=== PATIENT | male | born 1965 | race Caucasian/White ===

== ENCOUNTER 2019-04-19 14:24 | Emergency (ER) | payer OTHER, SELFPAY ==
[2019-04-19] VITALS (62 sets, daily range): BP systolic 113–159; BP diastolic 59–91; PULSE 85–96; RESP 13–28; TEMP 36.6–37.1; O2SAT 96–99
[2019-04-19] MEDS: Normal Saline Flush 10 ML SYR IVP (14:35)
--- NOTE | 2019-04-19 14:44 | DI.CT_ITS ---
EXAM: CT CHEST PE CTA CLINICAL HISTORY: chest pain, SOB, S1Q3T3 TECHNIQUE: Post IV contrast. The pulmonary arteries are well opacified with IV contrast. COMPARISON: No exams were available for comparison FINDINGS: No pulmonary emboli or aortic dissection is seen. The heart size is normal. The lungs appear clear. No adenopathy, infiltrate, pleural or pericardial effusion is seen. The liver shows severe fatty i nfiltration. Spleen is normal in size. The adrenals appear normal. IMPRESSION: Negative chest CT. No evidence of pulmonary emboli or other acute abnormality. Hepatic steatosis is noted.
[2019-04-19] MEDS: FAMOTIDINE 20 MG/50 ML BAG 200 MG IVPB (14:45)
--- NOTE | 2019-04-19 14:46 | W.ED.GENAD ---
Discharge Plan Disposition Patient Disposition: [facility] Condition: Critical Discharge Details Chief Complaint: Chest Pain Clinical Impression: Acute non-ST elevation myocardial infarction (NSTEMI) Primary Care Provider: Ilana Hamilton ED Provider: Nikos Longoria Home Meds and New Rx's Prescriptions: No Action potassium gluconate 595 mg (99 mg) tablet 99 mg PO DAILY Qty: 90 RF: 3 losartan 25 mg tablet 25 mg PO DAILY Qty: 30 RF: 2 atorvastatin 80 mg tablet 80 mg PO DAILY RF: 0 clopidogrel [Plavix] 75 mg tablet 75 mg PO DAILY RF: 0 famotidine 20 mg tablet 20 mg PO DAILY RF: 0 metoprolol succinate 25 mg capsule,sprinkle,ER 24hr 25 mg PO BID RF: 0 aspirin [Aspir-81] 81 MG tablet,delayed release (DR/EC) 81 mg PO DAILY RF: 0 Symbicort 80-4.5 mcg/actuation HFA aerosol inhaler 2 puff Inhalation BID Qty: 1 RF: 4 albuterol sulfate [Proventil HFA] 90 mcg/actuation HFA aerosol inhaler 2 puff Inhalation Q6H PRN Qty: 1 RF: 5 Discharge Data Discharge Date/Time-TO BE ENTERED AT DEPARTURE: 04/19/19 17:05 Medical Decision Making 1500 --53-year-old male with history of GERD, hypertension, here with intermittent chest pain since yesterday. ECG was reviewed and interpreted by me: Sinus rhythm 90 bpm, [address] elevation in lead III and aVF, S1Q3T3 present. This ECG was compared to prior ECG from 09/16/2015 and has changed since that time. Consider ACS. Plan to check troponin. Consider acute pulmonary embolism. Will CTA chest. 15:22 -- Troponin elevated. Patient reassess and notes 2/10 pain at this time. Will start nitro gtt. 15:25 -- Call to [facility] to request transfer. Awainting call back. 15:49 --repeat ECG was reviewed and interpreted by me: Dynamic changes noted with new J-point elevation in lead II, worsening ST elevation in lead III, <1mm elevation lead aVF, ST depressions noted lead I and aVL. We will give Plavix 600 mg, heparin bolus 5000 units and infusion, and additional aspirin 243mg (pt took 81mg this am). --I spoke with wood type finisher television technician and discussed ED presentation and course including my concern for intermittent pain, dynamic ECG changes and elevated troponin. He reviewed the ECGs and notes emergent cath not necessary but will accept the patient in transfer pending bed availability. -- Patient reassessed and pain resolved on nitro 10mcg/min. 16:25 --call from [facility] noting that now patient will be excepted to the [facility], Dr. kevin to accept the patient. HPI General Mode of arrival: ambulatory. Date/Time Provider Initiated Documentation: 04/19/19 14:28. Limitations to Documentation: no limitations. Information obtained by: patient. HPI Narrative: 53-year-old male with history of sleep apnea, GERD, hypertension, presents today with chief complaint of chest pain. Patient notes chest pain started yesterday and has been intermittent since onset. States he has episodes lasting approximately 15 to 20 minutes. Pain is described as severe and sharp. Pain is associated shortness of breath with the discomfort. Pain is localized to anterior chest. He has no associated lower extremity swelling or pain. No recent long distance travel. Related Data Home Medications Medication Instructions Recorded Confirmed aspirin [Aspir 81] 81 mg PO DAILY tab-cap 08/24/15 04/29/19 potassium gluconate 595 mg (99 mg) 99 mg PO DAILY #90 tab 05/02/18 04/29/19 tablet budesonide-formoterol HFA 80 2 puff INHALATION BID #1 inhaler 03/01/19 04/29/19 mcg-4.5 mcg/actuation aerosol inhaler losartan 25 mg tablet 25 mg PO DAILY #30 tab 03/19/19 04/29/19 albuterol sulfate 90 mcg/actuation 2 puff INHALATION Q6H PRN #1 04/22/19 04/29/19 aerosol inhaler inhaler atorvastatin 80 mg tablet 80 mg PO DAILY 04/29/19 04/29/19 clopidogrel 75 mg tablet 75 mg PO DAILY 04/29/19 04/29/19 famotidine 20 mg tablet 20 mg PO DAILY 04/29/19 04/29/19 metoprolol succinate 25 mg capsule 25 mg PO BID cap 04/29/19 04/29/19 sprinkle, ext. release 24 hr Previous Rx's Medication Instructions Recorded potassium gluconate 595 mg (99 mg) 99 mg PO DAILY #90 tab 11/21/18 tablet budesonide-formoterol HFA 80 2 puff INHALATION BID #1 inhaler 03/01/19 mcg-4.5 mcg/actuation aerosol inhaler losartan 25 mg tablet 25 mg PO DAILY #30 tab 03/19/19 albuterol sulfate 90 mcg/actuation 2 puff INHALATION Q6H PRN #1 04/22/19 aerosol inhaler inhaler Allergies Allergy/AdvReac Type Severity Reaction Status Date / Time No Known Allergies Allergy Unverified 04/29/19 09:58 General Stated Complaint: Chest Pain LUCIO: 2 Review of Systems All systems reviewed & are unremarkable except as noted in HPI and below Cardiovascular Cardiovascular: Reports chest pain and Denies edema PFSH Social History Smoking/Tobacco Use Status: Current every day Alcohol Intake: never Substance use type: does not use Do you feel safe at home: Yes Do you feel safe in your relationship?: Yes Exam Const General: cooperative and no acute distress HENMT Mouth: moist mucous membranes Eyes Conjunctivae: normal conjunctivae Sclera: normal sclerae Neck Neck: trachea midline and supple Resp Auscultation: clear to auscultation bilaterally, no rales, no rhonchi and no wheezes Cardio Jugular venous pressure: no JVD Rate: regular rate and not tachycardic Rhythm: regular rhythm GI Palpation: soft, not firm, no guarding, no masses, not rigid and nontender Skin General skin exam: no rashes or lesions noted Neuro General: alert, awake, oriented x3 and tone normal Extrem General: no calf tenderness and no edema Psych Appearance: grossly normal Mental Status: mental status grossly normal Course Vital Signs Vital signs: Vital Signs Temperature 36.6 C 04/19/19 14:28 Pulse 92 H 04/19/19 14:28 Respiratory Rate 18 04/19/19 14:28 Blood Pressure 149/85 H 04/19/19 14:28 Pulse Oximetry 96 04/19/19 14:28 Temperature 36.6 C 04/19/19 14:28 Temperature Source Temporal Artery Scan 04/19/19 14:28 Pulse 92 H 04/19/19 14:28 Respiratory Rate 18 04/19/19 14:28 Respiratory Effort Non-Labored 04/19/19 14:28 Blood Pressure 149/85 H 04/19/19 14:28 Blood Pressure Position Sitting 04/19/19 14:28 Pulse Oximetry 96 04/19/19 14:28 Oxygen Delivery Method Room Air 04/19/19 14:28 Oxygen Flow Rate 0 04/19/19 14:28 Pain Level 5 04/19/19 14:28 Critical Care Time Critical Care Time Critical Care Time: Yes Total Critical Care Time: 45 Attestation: I spent greater 45 minutes addressing this patient's immediate life threats
[2019-04-19 14:59] LABS: Abs Immature Grans 0.02 k/cumm (0.0-0.09); Absolute Basophil Count 0.02 k/cumm (0.0-0.2); Absolute Eosinophil Count 0.21 k/cumm (0.0-0.7); Absolute Lymphocyte Count 1.65 k/cumm (1.2-3.4); Absolute Monocyte Count 0.77 k/cumm (0.11-0.7); Absolute Neutrophil Count 7.41 k/cumm (1.2-6.7); Basophils % 0.2; Eosinophils % 2.1; HCT 46.9 % (40.0-50.0); HGB 16.8 g/dL (13.5-17.5); Immature Grans % 0.2; Lymphocytes % 16.4; Mean Corp. HGB Concentration 35.8 g/dL (32.0-36.0); Mean Corpuscular Hemoglobin 29.5 pg (27.0-33.0); Mean Corpuscular Volume 82.4 fL (80-95); Mean Platelet Volume 10.1 fL (8.0-11.0); Monocytes % 7.6; Neutrophils % 73.5; Platelet Count 254 x1000/uL (130-400); RBC 5.69 m/cumm (4.50-6.00); RBC Distribution Width 13.1 % (11.8-14.1); White Blood Cell Count 10.08 k/cumm (4.4-10.8)
[2019-04-19 15:10] LABS: ALT 55 U/L (16-63); AST 26 U/L (15-37); Alkaline Phosphatase 99 U/L (46-116); Anion Gap 9.1 mmol/L (3-11); BUN 15 mg/dL (7-18); Bilirubin, Total 0.4 mg/dL (0.2-1.0); CO2 29.9 mmol/L (21.0-32.0); CREATININE 1.13 mg/dL (0.70-1.30); Calcium 9.2 mg/dL (8.5-10.1); Chloride 99 mmol/L (98-107); Glucose 128 mg/dL (70-100); Magnesium 1.7 mg/dL (1.8-2.4); Potassium 3.5 mmol/L (3.5-5.1); Sodium 138 mmol/L (136-145); Total Protein 7.6 g/dL (6.4-8.2)
[2019-04-19 15:16] LABS: Troponin I 0.52 ng/mL (0.00-0.06)
[2019-04-19] MEDS: Omnipaque 350 MG/ML 100 ML BTL IJ (15:37)
[2019-04-19] MEDS: Clopidogrel 300 MG TAB 600 MG PO (16:03)
[2019-04-19] MEDS: Normal Saline 250 ML 500 ML IV (16:10)
[2019-04-19 16:27] LABS: PTT Activated 29.6 sec (21.0-31.4)
== END 2019-04-19 17:05 | disposition short-term general hospital (02) ==
PROVIDERS: Emergency Provider Student in an Organized Health Care Education/Training Program; PCP Internal Medicine
DX: I21.4 Non-ST elevation (NSTEMI) myocardial infarction (principal); I10 Essential (primary) hypertension
CPT/HCPCS: 36415; 71275; 80053; 93005; 96365; 99285; 83735; 84484; 85025; 85730; 93010; J3490

== ENCOUNTER 2019-04-29 07:00 | Outpatient (CLI) | payer OTHER, SELFPAY ==
[2019-04-29 12:58] LABS: ALT 49 U/L (16-63); AST 19 U/L (15-37); Alkaline Phosphatase 106 U/L (46-116); Anion Gap 8.4 mmol/L (3-11); BUN 19 mg/dL (7-18); Bilirubin, Total 0.7 mg/dL (0.2-1.0); CO2 28.6 mmol/L (21.0-32.0); CREATININE 1.16 mg/dL (0.70-1.30); Calcium 9.3 mg/dL (8.5-10.1); Chloride 102 mmol/L (98-107); Glucose 99 mg/dL (70-100); Sodium 139 mmol/L (136-145); Total Protein 7.2 g/dL (6.4-8.2)
== END 2019-04-29 07:20 ==
PROVIDERS: PCP Internal Medicine; Visit Provider Internal Medicine
DX: I10 Essential (primary) hypertension (principal); I21.4 Non-ST elevation (NSTEMI) myocardial infarction
CPT/HCPCS: 36415; 80053

== ENCOUNTER 2019-05-08 11:42 | Outpatient (RCR) | payer OTHER, SELFPAY | END 2019-05-11 23:59 | disposition home or self-care (01) | LOC: CR 11:42 | PROVIDERS: PCP Internal Medicine; Visit Provider Family Medicine | DX: I25.2 Old myocardial infarction (principal); Z51.89 Encounter for other specified aftercare | CPT/HCPCS: S9472 ==

== ENCOUNTER 2019-05-20 14:07 | Outpatient (RCR) | payer OTHER, SELFPAY | END 2019-06-11 23:59 | disposition home or self-care (01) | LOC: CR 14:07 | PROVIDERS: PCP Internal Medicine; Visit Provider Family Medicine | DX: I25.2 Old myocardial infarction (principal); Z51.89 Encounter for other specified aftercare | CPT/HCPCS: S9472 ==

== ENCOUNTER 2019-06-24 08:55 | Outpatient (CLI) | payer BC, SELFPAY | END 2019-06-24 09:15 | PROVIDERS: PCP Internal Medicine; Visit Provider Internal Medicine Cardiovascular Disease | DX: I25.10 Atherosclerotic heart disease of native coronary artery without angina pectoris (principal); I25.2 Old myocardial infarction; I25.5 Ischemic cardiomyopathy; I10 Essential (primary) hypertension; E78.5 Hyperlipidemia, unspecified | CPT/HCPCS: 93005; 93010 ==

== ENCOUNTER 2019-07-12 09:00 | Outpatient (RCR) | payer BC, SELFPAY | END 2019-07-12 23:59 | disposition home or self-care (01) | LOC: CR 09:00 | PROVIDERS: PCP Internal Medicine; Visit Provider Family Medicine | DX: Z51.89 Encounter for other specified aftercare (principal) | CPT/HCPCS: S9472 ==

== ENCOUNTER 2019-07-29 14:14 | Outpatient (CLI) | payer BC, SELFPAY ==
[2019-07-29 15:38] LABS: Bilirubin Negative (Negative); Blood Negative (Negative); Clarity Clear (Clear); Glucose 250 mg/dL (Negative); Ketones Negative (Negative); Leukocyte Esterase Negative (Negative); Nitrite Negative (Negative); Specific Gravity 1.025 (1.005-1.025)
== END 2019-07-29 14:34 ==
PROVIDERS: Family Medicine; PCP Internal Medicine; Visit Provider Internal Medicine
DX: R39.15 Urgency of urination (principal)
CPT/HCPCS: 81003; 87086

== ENCOUNTER 2019-08-08 08:52 | Emergency (ER) | payer BC, SELFPAY ==
[2019-08-08] VITALS (31 sets, daily range): BP systolic 118–157; BP diastolic 51–66; PULSE 58–80; RESP 1–82; TEMP 36.6–36.7; O2SAT 95–99
--- NOTE | 2019-08-08 08:57 | ED.GENADUL_ITS ---
Discharge Plan Disposition Patient Disposition: HOME Condition: Stable Discharge Details Chief Complaint: SOB Clinical Impression: Myalgia, History of statin therapy, Chronic shortness of breath, History of asthma Primary Care Provider: Ilana Zuniga ED Provider: Awa Bob Home Meds and New Rx's Prescriptions: New ezetimibe [Zetia] 10 mg tablet 10 mg PO DAILY 30 Days Qty: 30 RF: 0 Continued potassium gluconate 595 mg (99 mg) tablet 99 mg PO DAILY Qty: 90 RF: 3 budesonide-formoterol [Symbicort] 80-4.5 mcg/actuation HFA aerosol inhaler 2 puff Inhalation BID Qty: 1 RF: 4 pantoprazole 40 mg tablet,delayed release (DR/EC) 40 mg PO DAILY RF: 0 CPAP machine miscellaneous RF: 0 clopidogrel [Plavix] 75 mg tablet 75 mg PO DAILY Qty: 90 RF: 6 metoprolol succinate 25 mg tablet extended release 24 hr 25 mg PO DAILY Qty: 90 RF: 6 aspirin [Aspir-81] 81 MG tablet,delayed release (DR/EC) 81 mg PO DAILY RF: 0 albuterol sulfate [Proventil HFA] 90 mcg/actuation HFA aerosol inhaler 2 puff Inhalation Q6H PRN Qty: 1 RF: 5 losartan 25 mg tablet 25 mg PO DAILY Qty: 90 RF: 3 hydrochlorothiazide 25 mg tablet 25 mg PO DAILY Qty: 90 RF: 6 nitroglycerin 0.4 mg tablet, sublingual 0.4 mg SL Q5M PRNRF: 0 cholecalciferol (vitamin D3) 4,000 unit capsule 4,000 unit PO DAILY Qty: 90 RF: 3 cholecalciferol (vitamin D3) 125 mcg (5,000 unit) tablet 5,000 unit PO DAILY Qty: 90 RF: 3 Discontinued atorvastatin 80 mg tablet 80 mg PO DAILY Qty: 90 RF: 6 Discharge Instructions Instructions: Dyspnea (ED), Musculoskeletal Pain (ED) Additional Instructions: Stop taking your Lipitor today. Start taking the new prescription Zetia for your high cholesterol today. Take all of your other regular medications as directed. You will receive a call from care management regarding a follow-up appointment with cardiology within the next 1 to 2 weeks for reevaluation, echocardiogram, and for possible outpatient stress test. You will receive a call from respiratory therapy regarding follow-up for a pulmonary function test. Follow-up with your primary care doctor within the next week for reevaluation of your muscle pain and shortness of breath. Return to the emergency department if you develop any worsening or new concerning symptoms. Discharge Data Discharge Date/Time-TO BE ENTERED AT DEPARTURE: 08/08/19 13:07 Discharge Physician: Awa Bob Medical Decision Making 09 -- 54-year-old male with a history of obesity, asthma, hypertension, GERD, hyperlipidemia, NSTEMI w/ 3 coronary stents placed in Apr 2019 who presents with dyspnea on exertion and tightness in legs and shoulder for a couple weeks. EKG on arrival notes a rate of 71, sinus, no acute ST ischemic changes. He has evidence of old inferior infarct in lead III and aVF with T wave inversion but this is unchanged compared to EKG last month. He denies fever, cough, chest pain, dizziness, vomiting, extremity weakness, numbness or tingling. He denies any known injury. He denies recent travel. Patient is taking Lipitor since April status post his NSTEMI. Patient has no focal deficits and is neurovascular intact. He has normal respiratory rate and oxygen saturation. Suspect most likely his extremity pain is a myopathy due to the Lipitor. Appears less likely c/w intermittent claudication or ACS. He has diminished breath sounds throughout, so COPD or asthma also a consideration. History and presentation not consistent with dissection, PE or pneumonia. We will check screening labs, chest x-ray, give a DuoNeb and check a CK. Will reach out to patient's PCP to discuss. 1250 --labs reviewed and unremarkable. Magnesium 1.4, will replete. Troponin and BNP negative. CK normal. Chest x-ray negative for acute disease. Patient was given a DuoNeb and had minimal improvement. He states his he came here mainly for evaluation as his primary care doctor is out of town. Discussed with Pina Pope from his PCP office that I suspect his myalgia due to statin induced myopathy and that I will be stopping his Lipitor to start Zetia. Recommend that they follow-up with him next week for reevaluation. Also discussed with respiratory therapy and an outpatient PFT study was ordered. He states he has an appointment in September with Dr. Sebastian with plans for echocardiogram. An appointment was made with cardiology for March 9 for reevaluation. He was advised to obtain an echocardiogram earlier if possible and also consideration for an outpatient stress test. I discussed that his symptoms likely could be due to his asthma or COPD and may require further investigation. He is requesting to go home. He was advised to return here with any concerns. Medical Records Medical records reviewed: Yes I reviewed the patient's medical records. Imaging Data Radiologic Study: Radiologist's impression: <XR CHEST 2V PA LATERAL> CLINICAL HISTORY: <dyspnea on exertion, r/o acute disease> TECHNIQUE: PA and lateral COMPARISON: CHEST 2 VIEWS PA,LAT from 08/24/2015 CT CHEST PE CTA from 04/19/2019 FINDINGS: The heart size is at the upper limits of normal. The lungs are reasonably well inflated. No focal infiltrate, effusion or pulmonary edema seen. There are underlying fibrotic changes. IMPRESSION: Mild fibrotic changes. No acute abnormality. Lab Data Lab results reviewed: Yes I reviewed the patient's lab results. Labs: Laboratory Tests Range/Units 08/08/19 08/08/19 08/08/19 09:05 09:05 09:05 WBC (4.4-10.8) k/cumm 7.87 RBC (4.50-6.00) m/cumm 5.22 Hgb (13.5-17.5) g/dL 15.6 Hct (40.0-50.0) % 43.2 MCV (80-95) fL 82.8 MCH (27.0-33.0) pg 29.9 MCHC (32.0-36.0) g/dL 36.1 H RDW (11.8-14.1) % 12.9 Plt Count (130-400) x1000/uL 214 MPV (8.0-11.0) fL 10.0 Immature Gran % % 0.1 Neutrophils % 75.8 Lymphocytes % 14.9 Monocytes % 6.5 Eosinophils % 2.4 Basophils % 0.3 Absolute Neutrophils (1.2-6.7) k/cumm 5.97 Absolute Lymphocytes (1.2-3.4) k/cumm 1.17 L Absolute Monocytes (0.11-0.7) k/cumm 0.51 Absolute Eosinophils (0.0-0.7) k/cumm 0.19 Absolute Basophils (0.0-0.2) k/cumm 0.02 Sodium (136-145) mmol/L 136 Potassium (3.5-5.1) mmol/L 3.3 L Chloride (98-107) mmol/L 99 Carbon Dioxide (21.0-32.0) mmol/L 27.1 Anion Gap (3-11) mmol/L 9.9 BUN (7-18) mg/dL 19 H Creatinine (0.70-1.30) mg/dL 1.19 Estimated GFR/1.73 m2 (mL/min/1.73m2) >= 60.00 Glucose (74-106) mg/dL 285 H Calcium (8.5-10.1) mg/dL 8.6 Magnesium (1.8-2.4) mg/dL 1.4 L Total Bilirubin (0.2-1.0) mg/dL 0.7 AST (15-37) U/L 34 ALT (16-63) U/L 56 Alkaline Phosphatase (46-116) U/L 118 H Creatine Kinase (39-308) U/L 234 Troponin I (<0.06) ng/Ml < 0.05 NT-Pro-B Natriuret Pep (<300) pg/mL 23 Total Protein (6.4-8.2) g/dL 7.1 Albumin (3.4-5.0) g/dL 3.8 Lipase (73-393) U/L 124 ECG Data Attestation: I personally reviewed and interpreted this ECG (s) as follows: Interpretation: Rate of 71, sinus, T wave inversion in lead III which is seen in previous EKG. No acute ST elevation or depression. LA 210. QTc 393. QRS 93. HPI General Mode of arrival: ambulatory . Date/Time Provider Initiated Documentation: 08/08/19 08:53 . Limitations to Documentation: no limitations . Information obtained by: patient . History of Present Illness 54 year old M presents to the emergency department with the chief complaint of b/l leg and shoulder pain, shortness of breath, worse w/ exertion/movement, Quality is described as aching and constant, and is localized to the left, right, upper extremity and lower extremity. Patient reports radiation to (radiates from both shoulders down arms and both legs). Patient started experiencing this month(s) (1) and it has been constant. Rest improves symptom(s), Movement worsens symptoms . Patient notes shortness of breath; denies chest pain, cough, diaphoresis, fever/chills, headaches, loss of appetite, malaise, nausea/vomiting, rash, seizure, syncope and weakness. Patient did receive the following treatments prior to arrival, none Related Data Home Medications Medication Instructions Recorded Confirmed aspirin [Aspir-81] 81 mg PO DAILY tab-cap 08/23/16 08/08/19 potassium gluconate 595 mg (99 mg) 99 mg PO DAILY #90 tab 05/02/18 08/08/19 tablet albuterol sulfate 90 mcg/actuation 2 puff INHALATION Q6H PRN #1 04/22/19 08/08/19 aerosol inhaler inhaler hydrochlorothiazide 25 mg tablet 25 mg PO DAILY #90 tab 05/20/19 08/08/19 losartan 25 mg tablet 25 mg PO DAILY #90 tab 05/20/19 08/08/19 nitroglycerin 0.4 mg sublingual 0.4 mg SL Q5M PRN 06/19/19 08/08/19 tablet CPAP machine MISCELLANEOUS 06/24/19 06/24/19 clopidogrel 75 mg tablet 75 mg PO DAILY #90 tab 06/24/19 08/08/19 metoprolol succinate 25 mg 25 mg PO DAILY #90 tab 06/24/19 08/08/19 tablet,extended release 24 hr pantoprazole 40 mg tablet,delayed 40 mg PO DAILY 06/24/19 08/08/19 release budesonide-formoterol HFA 80 2 puff INHALATION BID #1 inhaler 07/08/19 08/08/19 mcg-4.5 mcg/actuation aerosol inhaler cholecalciferol (vitamin D3) 125 5,000 unit PO DAILY #90 tab 07/10/19 08/08/19 mcg (5,000 unit) tablet cholecalciferol (vitamin D3) 4,000 4,000 unit PO DAILY #90 cap 07/10/19 08/08/19 unit capsule ezetimibe [Zetia] 10 mg PO DAILY 30 Days #30 tab 08/08/19 Previous Rx's Medication Instructions Recorded potassium gluconate 595 mg (99 mg) 99 mg PO DAILY #90 tab 05/02/18 tablet albuterol sulfate 90 mcg/actuation 2 puff INHALATION Q6H PRN #1 04/22/19 aerosol inhaler inhaler hydrochlorothiazide 25 mg tablet 25 mg PO DAILY #90 tab 05/20/19 losartan 25 mg tablet 25 mg PO DAILY #90 tab 05/20/19 clopidogrel 75 mg tablet 75 mg PO DAILY #90 tab 06/24/19 metoprolol succinate 25 mg 25 mg PO DAILY #90 tab 06/24/19 tablet,extended release 24 hr budesonide-formoterol HFA 80 2 puff INHALATION BID #1 inhaler 07/08/19 mcg-4.5 mcg/actuation aerosol inhaler cholecalciferol (vitamin D3) 125 5,000 unit PO DAILY #90 tab 07/10/19 mcg (5,000 unit) tablet cholecalciferol (vitamin D3) 4,000 4,000 unit PO DAILY #90 cap 07/10/19 unit capsule ezetimibe [Zetia] 10 mg PO DAILY 30 Days #30 tab 08/08/19 Allergies Allergy/AdvReac Type Severity Reaction Status Date / Time No Known Allergies Allergy Unverified 08/08/19 09:02 General LUCIO: 2 Review of Systems All systems reviewed & are unremarkable except as noted in HPI and below Constitutional Constitutional: Reports as per HPI, Denies chills and Denies fever(s) Eyes Eyes: Denies blurry vision ENT Ears, Nose, Mouth, and Throat: Denies dizziness, Denies sore throat and Denies throat swelling Cardiovascular Cardiovascular: Denies chest pain and Reports dyspnea Respiratory Respiratory: Denies cough and Reports dyspnea Gastrointestinal Gastrointestinal: Denies abdominal pain, Denies diarrhea and Denies vomiting Genitourinary Genitourinary: Denies hematuria and Denies dysuria Musculoskeletal Musculoskeletal: Denies back pain and Denies numbness Integumentary/Breasts Skin/Breast: Denies lesions and Denies rash Neurologic Neurologic: Denies dizziness, Denies focal weakness, Denies numbness and Reports other (b/l lower leg and shoulder pain ) Allergic/Immunologic Allergic/Immunologic: Denies throat swelling [facility] Medical History Asthma (Chronic) Diabetes (Chronic) Essential hypertension (Acute) Blood pressure uncontrolled today no change in medication. Gastroesophageal reflux disease without esophagitis (Acute 07/11/17) Continue taking omeprazole. Hyperlipidemia (Acute 05/14/07) Non-STEMI (non-ST elevated myocardial infarction) (Acute ~04/19/19) Obesity (BMI 30-39.9) (Acute 07/11/17) Counseled him on changing his eating habits so he would lose weight. Sleep apnea with use of continuous positive airway pressure (CPAP) (Acute 10/19/15) He uses his CPAP regularly no change here. Smoker (Acute 07/11/17) Surgical History H/O heart artery stent (Chronic ~04/19/19) MARLA to distal RCA and proximal LAD Family History Mother , age 65 Diabetes Heart disease CHF Father , age 69 Cancer Lung cancer Sister No problems noted. Sister No problems noted. Sister No problems noted. Brother No problems noted. Brother No problems noted. Son No problems noted. Daughter No problems noted. Social History Smoking/Tobacco Use Status: Former Tobacco Use Quit Date: 04/19/19 Tobacco: How many years used: 32 Alcohol Intake: current Alcohol Intake frequency: holidays/special occasions only Alcohol type: wine and hard liquor Drug use: Never Substance use type: does not use Caregiver/Support person: No Household members: children Housing: house Communication Needs: None Do you need help understanding health information?: Often Pets and animals: Yes Pets and animals: cat(s), dog(s) and horse(s) Current gender identity: female What is your relationship status?: refused to answer How often do you talk on the phone with friends or family?: decline to answer How often do you get together with friends or relatives?: decline to answer How often do you attend presybeterian or catholic services?: decline to answer Do you belong to any clubs or organized social groups?: decline to answer Panel score (0-1 are the most socially isolated patients): 0 What type of physical activity do you participate in: none Caryn/Evangelical: None Special caryn needs: No Seatbelt use: always Helmet use: No Drive intox or ride w/intox package delivery driver: No Do you feel safe at home: Yes Do you feel safe in your relationship?: Yes Exam Const General: cooperative and no acute distress Nutritional Appearance: obese Orientation: alert, awake and oriented x3 HENMT Head: normal to inspection Face and sinus: normal facial exam Eyes General: appearance normal, both eyes and all related structures EOM: EOM intact bilaterally Neck Neck: normal visual inspection and No submandibular swelling Lymphatic: no lymphadenopathy noted Chest Chest: normal inspection of the chest and no tenderness Resp Effort & Inspection: normal respiratory effort and able to speak in complete sentences Auscultation: diminished lung sounds bilaterally throughout Cardio Rate: regular rate Rhythm: regular rhythm GI Inspection: normal to inspection Palpation: soft, not firm, not rigid and nontender Auscultation: normal bowel sounds Back/Spine/Pelvis Pelvis: no pain with anterior-posterior compression Skin General skin exam: no rashes or lesions noted Other: Skin color of extremities normal without erythema, ecchymosis, cyanosis or texture changes. Neuro General: alert, awake and oriented x3 Cognition: normal cognition Speech: speech normal Motor: muscle tone normal throughout and strength 5/5 throughout Sensory Exam: no sensory deficits noted Extrem General: normal to inspection, full ROM, normal capillary refill, no calf tenderness bilaterally and no edema Other: Bilateral radial, ulnar, PT and DP pulses. Psych Appearance: grossly normal Mental Status: mental status grossly normal Speech and Movement: speech and movement normal Affect: normal affect
[2019-08-08 09:45] LABS: Abs Immature Grans 0.01 k/cumm (0.0-0.09); Absolute Basophil Count 0.02 k/cumm (0.0-0.2); Absolute Eosinophil Count 0.19 k/cumm (0.0-0.7); Absolute Lymphocyte Count 1.17 k/cumm (1.2-3.4); Absolute Monocyte Count 0.51 k/cumm (0.11-0.7); Absolute Neutrophil Count 5.97 k/cumm (1.2-6.7); Basophils % 0.3; Eosinophils % 2.4; HCT 43.2 % (40.0-50.0); HGB 15.6 g/dL (13.5-17.5); Immature Grans % 0.1 %; Lymphocytes % 14.9; Mean Corp. HGB Concentration 36.1 g/dL (32.0-36.0); Mean Corpuscular Hemoglobin 29.9 pg (27.0-33.0); Mean Corpuscular Volume 82.8 fL (80-95); Monocytes % 6.5; Neutrophils % 75.8; Platelet Count 214 x1000/uL (130-400); RBC 5.22 m/cumm (4.50-6.00); RBC Distribution Width 12.9 % (11.8-14.1); White Blood Cell Count 7.87 k/cumm (4.4-10.8)
[2019-08-08] MEDS: Normal Saline 500 ML IV (10:01)
[2019-08-08 10:05] LABS: Lipase 124 U/L (73-393)
--- NOTE | 2019-08-08 10:07 | DI.RAD_ITS ---
EXAM: <XR CHEST 2V PA LATERAL> CLINICAL HISTORY: <dyspnea on exertion, r/o acute disease> TECHNIQUE: PA and lateral COMPARISON: CHEST 2 VIEWS PA,LAT from 08/24/2015 CT CHEST PE CTA from 04/19/2019 FINDINGS: The heart size is at the upper limits of normal. The lungs are reasonably well inflated. No focal infiltrate, effusion or pulmonary edema seen. There are underlying fibrotic changes. IMPRESSION: Mild fibrotic changes. No acute abnormality.
[2019-08-08 10:21] LABS: ALT 56 U/L (16-63); AST 34 U/L (15-37); Albumin 3.8 g/dL (3.4-5.0); Alkaline Phosphatase 118 U/L (46-116); Anion Gap 9.9 mmol/L (3-11); BUN 19 mg/dL (7-18); Bilirubin, Total 0.7 mg/dL (0.2-1.0); CO2 27.1 mmol/L (21.0-32.0); CREATININE 1.19 mg/dL (0.70-1.30); Calcium 8.6 mg/dL (8.5-10.1); Chloride 99 mmol/L (98-107); Creatine Kinase 234 U/L (39-308); Glucose 285 mg/dL (74-106); Magnesium 1.4 mg/dL (1.8-2.4); NT-proBNP 23 pg/mL (<300); Potassium 3.3 mmol/L (3.5-5.1); Sodium 136 mmol/L (136-145); Total Protein 7.1 g/dL (6.4-8.2)
[2019-08-08 10:22] LABS: Troponin I < 0.05 ng/Ml (<0.06)
[2019-08-08] MEDS: Ketorolac 30 MG/ML VIAL IVP (11:15)
[2019-08-08] MEDS: MAGNESIUM SULFATE 1 GM/100 ML BAG IVPB (11:15)
[2019-08-08] MEDS: Albuterol/Ipratropium 3 ML UPD VIAL UPD (11:50)
--- NOTE | 2019-08-08 13:03 | NUR.NOTE ---
Nursing Note: Appt made for pt on August 18 @ 11:40am in Cardiology with Dr. Sebastian. [address].
== END 2019-08-08 13:07 | disposition home or self-care (01) ==
PROVIDERS: Emergency Provider Physician Assistant; PCP Internal Medicine
DX: R06.09 Other forms of dyspnea (principal); E78.5 Hyperlipidemia, unspecified; E83.42 Hypomagnesemia; J45.909 Unspecified asthma, uncomplicated; M79.10 Myalgia, unspecified site; T46.6X5A Adverse effect of antihyperlipidemic and antiarteriosclerotic drugs, initial encounter; I10 Essential (primary) hypertension; E11.9 Type 2 diabetes mellitus without complications
CPT/HCPCS: 36415; 80053; 82550; 83690; 93005; 94640; 96361; 96365; 96375; 99285; 71046; 83735; 83880; 84484; 85025; 93010; J1885; J3475; J7620

== ENCOUNTER 2019-08-09 13:40 | Outpatient (RCR) | payer BC, SELFPAY | END 2019-08-10 23:59 | disposition home or self-care (01) | LOC: CR 13:40 | PROVIDERS: PCP Internal Medicine; Visit Provider Family Medicine | DX: Z51.89 Encounter for other specified aftercare (principal); I25.2 Old myocardial infarction | CPT/HCPCS: S9472 ==

== ENCOUNTER 2019-08-15 01:18 | Outpatient (CLI) | payer BC, SELFPAY ==
--- NOTE | 2019-08-15 09:00 | ETT_ITS ---
APPROVED REPORT Exam: Exercise Treadmill Patient Location: Out-Patient Room/Bed: Stress Nurse: Sheron Webb RN BMI: 38.57 Baseline Rhythm: Sinus Rhythm Indications: Patient reports SOB with activity with occasional dizziness over the last month. Medical History Medical History: Chronic SOB, NSTEMI, Ischemic Cardiomyopathy, Obesity, Sleep Apnea with CPAP use Cardiac Medications: Aspirin, Potassium Gluconate, Hydrochlorothiazide, Losartan, Nitroglycerin SL, C lopidogrel, Metoprolol Succinate, Atorvastatin. Allergies: No known drug allergies Cardiac Risk Factors: FHX of CAD, HTN, Hyperlipidemia, Asthma Previous Cardiac Procedures: Stents X3 per patient Pretest Chest Pain Characteristics: No chest pain Exercise History: Physically active Physical Disabilities: None Lung Sounds: Clear to auscultation Heart Sounds: Regular Stress Test Details Test: Exercise stress testing was performed using a [place] protocol. Rest Stress HR Resting HR Supine: 60 bpm Max Heart Rate (APMHR): 168 bpm Resting HR Standin bpm Target HR (85% APMHR): 142 bpm Max HR Achieved: 154 bpm % of APMHR: 91 HR response to stress: Normal HR response to stress BP Resting BP Supine: 150/90 mmHg Resting BP Standin/80 mmHg Max BP: 196/92 mmHg BP response to stress: Normal blood pressure response to stress. ECG Resting ECG: Sinus Rhythm Stress ECG: Sinus Tachycardia ST Change: Normal Arrhythmia: None Recovery ECG: Sinus Rhythm Recovery ST Change: Normal Recovery Arrhythmia: None Clinical Reason for Termination: Dyspnea Stress Symptoms: Dyspnea Exercise duration: 6 min0 sec Highest Stage Reached: Stage 2: 2.5 mph at 12% grade. Exercise capacity: 7.05 METs Functional Capacity: Moderately diminished capacity Stress ECG Conclusion 1. The patient exercised for 6 minutes (7 METS). Exercise was stopped due to dyspnea. Rate-pressure product was 29,000. 2. The patient experienced no symptoms suggestive of ischemia. 3. There was no evidence of ischemia on the ECG at this level of stress. 4. The Calles Score ( 5) estimates an annual cardiovascular mortality of 1% and a five year survival of 94%. Using the Calles Score there is a low probability of any angiographic coronary disease. Protocol Used: [place] Protocol Stress Test Summary STAGE Time (mins) Speed (mph) Grade (%) HR BP SYMPTOMS METS Supine 60 150/90 Standing 88 150/80 1 3 1.7 10 125 180/90 4.6 2 6 2.5 12 152 190/95 7 3 9 3.4 14 10.2 4 12 4.2 16 12.9 5 15 5.0 18 17.2 1 min recovery 136 196/92 3 min recovery 97 190/90 6 min recovery 88 150/92 9 min recovery 12 min recovery
== END 2019-08-15 01:38 ==
PROVIDERS: PCP Internal Medicine; Visit Provider Internal Medicine Cardiovascular Disease
DX: R06.02 Shortness of breath (principal); R06.09 Other forms of dyspnea; R42 Dizziness and giddiness; I10 Essential (primary) hypertension; I25.2 Old myocardial infarction; I25.5 Ischemic cardiomyopathy; E78.5 Hyperlipidemia, unspecified; Z82.49 Family history of ischemic heart disease and other diseases of the circulatory system
CPT/HCPCS: 93017

== ENCOUNTER 2019-08-19 13:00 | Outpatient (RCR) | payer BC, SELFPAY | END 2019-09-10 23:59 | disposition home or self-care (01) | LOC: CR 13:00 | PROVIDERS: PCP Internal Medicine; Visit Provider Family Medicine | DX: I25.2 Old myocardial infarction (principal); Z51.89 Encounter for other specified aftercare | CPT/HCPCS: S9472 ==

== ENCOUNTER 2019-08-22 01:26 | Outpatient (CLI) | payer BC, SELFPAY ==
--- NOTE | 2019-08-22 08:30 | DI.US_ITS ---
APPROVED REPORT EXAM: Comprehensive 2D, Doppler, and color-flow Echocardiogram Patient Location: Out-Patient Supervisor Heading: Shirley Spears RDCS (AE) Indications: NSTEMI Conclusion Left Ventricle : The left ventricle is normal size. The left ventricular systolic function is normal . There is normal left ventricular wall thickness. There is normal LV segmental wall motion. The le ft ventricular diastolic function is normal. LVEF is 50-54%. Right Ventricle : The right ventricle is normal size. Atria : The left atrium size is normal. The right atrium size is normal. Valves: There are no hemodynamically significant valvular lesions. Great Vessels : The IVC was not well visualized. There is not enough TR to estimate RVSP. There is no prior echocardiogram available for comparison. Wall motion Left Ventricle The left ventricle is normal size. The left ventricular systolic function is normal. There is normal left ventricular wall thickness. There is normal LV segmental wall motion. The left ventricular diast olic function is normal. LVEF is 50-54%. Right Ventricle The right ventricle is normal size. RV function appears to be normal. Atria The left atrium size is normal. The right atrium size is normal. Aortic Valve Aortic valve is trileaflet. There is no aortic valvular stenosis. No aortic regurgitation is present. Mitral Valve There is mitral annular calcification. No evidence of mitral valve stenosis. Trace mitral regurgitati on. Tricuspid Valve The tricuspid valve is normal in structure. There is no tricuspid valve stenosis. Trace tricuspid reg urgitation. Pulmonic Valve The pulmonary valve is normal in structure. There is no pulmonic valvular stenosis. Great Vessels The aortic root is normal in size. The ascending aorta is normal in size. The IVC was not well visual ized. There is not enough TR to estimate RVSP. Pericardium There is no pericardial effusion. 2D Dimensions IVSD d PLAX 0.96 cm M: 0.6-1.2 LV Vol A2C d MOD 121.1 mL LVPW d PLAX 0.95 cm M: 0.6 - 1.2 LV Vol A4C d MOD 114.5 mL LVID d PLAX 4.70 cm M: 4.2 - 5.8 LA vol/ BSA A2C s A-L 19.9 mL/m2 LVDs 3.60 cm M: 2.5 - 4.0 LA vol/ BSA A4C s A-L 15.8 mL/m2 Ao Root d 2.61 cm M: 3.1 - 3.7 LA Vol/ BSA Biplane s A-L 19.0 mL/m2 RA Area A4C 13.56 cm2 LA Area A4C s MOD 13.95 cm2 RA Vol/ BSA A4C s A-L 17.6 mL/m2 LA Area A2C s MOD 14.57 cm2 Ao Asc Diam d 2.99 cm M: 2.6 - 3.4 LV EF A4C MOD 48.6 % LV EF Teichholz 45.1 % LV EF A2C MOD 50.4 % LVEF (Dominguez's) 51.06 % M: 52 - 72 LV EF Biplane MOD 51.1 % LV Volume 88.96 mL M: 62 - 150 LV Volume Index 40.99 mL/m2 M: 34 - 74 LV Vol Biplane MOD 121.9 mL FS 22.35 % LV Diastology MV E' medial 0.072 (>0.07 m/s) E/A Ratio 1.2 LV E/e MED 11.90 (<14) MV E Vmax 0.86 (0.4-1.3 m/s) MV E' lateral 0.086 (>0.1 m/s) MV A Vmax 0.70 (0.4-1.3 m/s) LV E/e LAT 10.00 (<14) MV E/A Ratio 1.20 MV E/E' medial 11.93 MV E/E' lateral 10.00 Aortic Valve LVOT Area 3.30 cm2 AoV Area Vmax 2.62 cm2 LVOT Vmax 0.92 m/s AoV Area/ BSA (Vmax) 1.20 cm2/m2 LVOT Mean Jason. 0.57 m/s JAGDISH Mean Jason. 2.23 cm2 LVOT Peak Grad 3.4 mmHg JAGDISH Mean Jason. Index 1.03 cm2/m2 LVOT Mean Grad 1.6 mmHg LVOT VTI 0.192 m LVOT Diam s 2.05 cm (M/F) 1.5-2.5 AoV Vmax 1.17 (0.5-1.3 m/s) Velocity Ratio 0.78 AoV Mean Jason. 0.84 m/s AoV Peak Grad 5.4 mmHg LVOT SV 63.45 mL AoV Mean Grad 3.1 (<5 mmHg) AoV VTI 0.251 (0.18-0.25 m) AoV Area VTI 2.53 (2.5-4.5 cm2) AoV Area/ BSA (VTI) 1.16 cm/m2 Mitral Valve MV DT 182 (160-240 msec) MV PHT 53 msec MV Area PHT 4.16 cm2 Pulmonary Valve PV Vmax 1.07 (0.5-1.5 m/s) RVOT Peak Gr. 1.51 mmHg PV Peak Grad 4.6 mmHg RVOT Mean Gr. 0.85 mmHg PV Mean Grad 2.4 mmHg RVOT VTI 0.144 m PV VTI 0.230 m RVOT Vmax 0.61 m/s
[2019-08-22 11:37] LABS: Hemoglobin A1C 7.9 % (3.8-5.6)
[2019-08-22 11:45] LABS: ESR 14 mm/hr (1-20)
[2019-08-22 12:08] LABS: C-Reactive Protein 0.17 mg/dL (0.0-0.3); Magnesium 1.4 mg/dL (1.8-2.4)
== END 2019-08-22 01:46 ==
PROVIDERS: PCP Internal Medicine; Visit Provider Internal Medicine Cardiovascular Disease
DX: I25.2 Old myocardial infarction (principal); E11.9 Type 2 diabetes mellitus without complications; I10 Essential (primary) hypertension; R06.09 Other forms of dyspnea; E83.42 Hypomagnesemia; M25.50 Pain in unspecified joint
CPT/HCPCS: 36415; 85652; 83036; 83735; 86140; 93306

== ENCOUNTER 2019-08-22 02:58 | Outpatient (CLI) | payer BC, SELFPAY ==
--- NOTE | 2019-08-22 | PFT_ITS ---
PULMONARY FUNCTION TEST REPORT Patient - Gustabo Yoo DATE OF SERVICE August 22, 2019 REQUESTING PROVIDER Jayme Sebastian M.D. INTERPRETATION OF STUDY Spirometry shows no evidence of obstructive airways disease, some but no bronchodilator response. LUNG VOLUMES - Lung volumes show no evidence of restriction. DIFFUSION CAPACITY- Normal. AIRWAY RESISTANCE - Normal. IMPRESSION Overall normal pulmonary function study. Clinical correlation recommended. When this study was compared to previous one from 09/01/06, the patient has a total of 560 cc decline in FVC. FEV1 has declined by 520 cc. Basilia Crane M.D. MELVIN/ DD - 08/29/2019
[2019-08-22] MEDS: Inhaler, Assist Device 1 EACH MC (10:29)
[2019-08-22] MEDS: Albuterol HFA 18 GM 200 PUFF INH IH (10:30)
== END 2019-08-22 03:18 ==
PROVIDERS: PCP Internal Medicine; Visit Provider Internal Medicine Cardiovascular Disease
DX: R06.09 Other forms of dyspnea (principal); Z87.891 Personal history of nicotine dependence
CPT/HCPCS: 94060; 94726; 94729

== ENCOUNTER 2020-07-23 02:57 | Outpatient (CLI) | payer BC, SELFPAY ==
[2020-07-23 08:34] LABS: CREATININE 1.1 mg/dL (0.70-1.30); Calculated LDL 34 mg/dL (<100); Cholesterol 105 mg/dL (<200); HDL Cholesterol 33 mg/dL (40-60); Magnesium 1.3 mg/dL (1.8-2.4); Potassium 3.6 mmol/L (3.5-5.1); Triglyceride 193 mg/dL (<150)
== END 2020-07-23 02:58 | disposition home or self-care (01) ==
LOC: LBO 02:58
PROVIDERS: PCP Nurse Practitioner; Visit Provider Nurse Practitioner
DX: E78.2 Mixed hyperlipidemia (principal); I10 Essential (primary) hypertension; E11.9 Type 2 diabetes mellitus without complications; Z79.4 Long term (current) use of insulin; E83.42 Hypomagnesemia; E87.6 Hypokalemia
CPT/HCPCS: 36415; 80061; 82565; 83735; 84132

== ENCOUNTER 2021-04-12 03:09 | Outpatient (CLI) | payer MEDICAID, SELFPAY ==
--- NOTE | 2021-04-12 13:00 | NS.NUTBLAN_ITS ---
Tan was referred to [facility] for diabetes self management education. PMH: DM2, CAD, Hx of IA, Sleep Apnea. DM meds glipizide 5 mg qd, 1000 mg metformin BID. A1C: 7.6% (01/07/21), Lipds wnl. Tan reports blood sugars typically 170-200 mg/dl before breakfast. Typical Meal Plan: [place] with PB, [place] and home cooked meal. Does not drink sweetened beverages and avoids alcohol. 5'6 245 lbs, BMI 55. Tan reports that he comes from a family of big people and that he is one of the smallest in his family. Strong family hx of DM. Cristina lives with a friend and cares for farm animals and stays active during the day. He is unable to walk for long periods of time due to leg/foot pain from neuropathy. He is concerned that he can't lose weight without exercise. Tan is at high risk for PVD and needs intensive diabetes management for optimal glycemic management. Today's session talked about dietary strategies to lower blood sugars. Recommend that he omit carbohydrates at dinner and limit overall carbohydrate intake to no more than 100 g carbs daily. He enjoys vegetables and is agreeable to have protein and vegetables at dinner. We also discussed using a continuous glucose monitor to better monitor blood sugars during day. He was agreeable to that as well. Recommend Zara 2 Continuous glucose monitor with 3 sensors per month, 1 reader and freestyle neostrips for blood sugar testing. Tan will bring back in to my office and I will place it for him. Tan was agreeable to a referral to [facility] and [facility] Canales for assistance in services, insurance and medication management. I will call Tan next week and schedule appointment for CGM placement.
== END 2021-04-12 03:10 | disposition home or self-care (01) ==
PROVIDERS: PCP Nurse Practitioner; Visit Provider Dietitian, Registered
DX: E11.9 Type 2 diabetes mellitus without complications (principal); Z79.84 Long term (current) use of oral hypoglycemic drugs; Z71.3 Dietary counseling and surveillance
CPT/HCPCS: 97802

== ENCOUNTER 2021-07-08 03:31 | Outpatient (CLI) | payer MEDICAID, SELFPAY ==
[2021-07-08 09:11] LABS: Hemoglobin A1C 6.8 % (<5.7)
[2021-07-08 10:45] LABS: COMMENT (LAB VIEW ONLY) 149.84 mg/dL; Microalb ug/mg Crea 38.2 ug/mg Cr
[2021-07-08 10:47] LABS: Calculated LDL 51 mg/dL (<100); Cholesterol 129 mg/dL (<200); HDL Cholesterol 35 mg/dL (40-60); Triglyceride 219 mg/dL (<150)
[2021-07-08 11:23] LABS: Potassium 2.9 mmol/L (3.5-5.1)
== END 2021-07-08 03:32 | disposition home or self-care (01) ==
LOC: LBO 03:31
PROVIDERS: PCP Nurse Practitioner; Visit Provider Nurse Practitioner
DX: E78.2 Mixed hyperlipidemia (principal); I10 Essential (primary) hypertension; I25.2 Old myocardial infarction; E11.9 Type 2 diabetes mellitus without complications; Z79.4 Long term (current) use of insulin
CPT/HCPCS: 36415; 80061; 82043; 82565; 82570; 83036; 84132

== ENCOUNTER 2021-07-12 01:40 | Outpatient (CLI) | payer MEDICAID, SELFPAY ==
[2021-07-12 12:56] LABS: Potassium 2.6 mmol/L (3.5-5.1)
== END 2021-07-12 01:41 | disposition home or self-care (01) ==
LOC: LBO 01:40
PROVIDERS: PCP Nurse Practitioner; Visit Provider Nurse Practitioner
DX: E87.6 Hypokalemia (principal)
CPT/HCPCS: 36415; 84132

== ENCOUNTER → 2021-10-12 01:18 | Outpatient (CLI) | payer OTHER, SELFPAY ==
--- NOTE | 2021-10-12 10:54 | DI.RAD_ITS ---
Exam(s) XR THORACIC SPINE COMPLETE EXAM: XR THORACIC SPINE COMPLETE CLINICAL HISTORY: DISABILITY DETERMINATION, Z02.71; BACK PAIN; 2 VIEWS AP AND LATERAL. TECHNIQUE: 2D digital imaging was performed. COMPARISON: No exams were available for comparison FINDINGS: 3 views No evidence of compression fracture or listhesis scoliosis. No abnormal widening paraspinal lines. Multilevel right-sided osteophytes are noted. No ominous osseous lesions. IMPRESSION: DATA REPOSITORY: RADIATION DOSE DELIVERED:
--- NOTE | 2021-10-12 10:54 | DI.RAD_ITS ---
Exam(s) XR LUMBAR SPINE AP, LAT EXAM: XR LUMBAR SPINE AP, LAT CLINICAL HISTORY: DISABILITY DETERMINATION, Z02.71; BACK PAIN; 2 OR 3 VIEWS AP AND LATERAL. TECHNIQUE: 2D digital imaging was performed. COMPARISON: CR LUMBAR SPINE COMPLETE from 09/21/2010 CR XR LUMBAR SPINE AP, LAT from 10/12/2021 FINDINGS: 3 views No evidence of fracture. When compared 2010 there has been some disc space narrowing at L4-5 level. There is also an element of anterolisthesis of L5 upon S1 again noted, approximately 7. May be rela radha to what appear to be bilateral pars defects at the L5 level. Disc spaces at and above L3-4 exhib it normal height. There appears to be sacralization of the L5 segment. IMPRESSION: Above. Recommend flexion and extension lateral views to determine the true amount L5 upon S1 listhes is. DATA REPOSITORY: RADIATION DOSE DELIVERED:
--- NOTE | 2021-10-12 10:54 | DI.RAD_ITS ---
Exam(s) XR HIP RT COMPLETE AP PELVIS EXAM: XR HIP RT COMPLETE AP PELVIS CLINICAL HISTORY: DISABILITY DETERMINATION, Z02.71; RT HIP PAIN; 2-3 VIEWS. TECHNIQUE: 2D digital imaging was performed. COMPARISON: No exams were available for comparison FINDINGS: Views There is no evidence of pelvic nor hip fracture. No hip joint space narrowing evident. However, the re appear to be symmetrical subarticular lucencies in this superolateral aspect of both acetabuli, po ssibly degenerative cysts although there does not appear to be joint space narrowing nor obvious abno rmality in the femoral heads. Benign bone island is noted in the mid aspect of the left femoral neck . IMPRESSION: DATA REPOSITORY: RADIATION DOSE DELIVERED:
== END ==
PROVIDERS: PCP Nurse Practitioner; Visit Provider Pediatrics Pediatric Rheumatology
DX: M54.6 Pain in thoracic spine (principal); M25.78 Osteophyte, vertebrae; M54.59 Other low back pain; M51.37 Other intervertebral disc degeneration, lumbosacral region; M25.551 Pain in right hip; Z02.71 Encounter for disability determination; R10.2 Pelvic and perineal pain
CPT/HCPCS: 72072; 72100; 73502

== ENCOUNTER 2021-11-09 03:09 | Outpatient (CLI) | payer MEDICAID, SELFPAY ==
[2021-11-09 12:24] LABS: HCT 47.4 % (40.0-50.0); HGB 16.7 g/dL (13.5-17.5); MCH 29.4 pg (27.0-33.0); MCHC 35.2 % (32.0-36.0); MCV 84 fL (80-95); MPV 10.6 fL (8.0-11.0); Platelet Count 228 10^3/uL (130-400); RBC 5.68 10^6/uL (4.36-5.78); RDW 13.5 % (11.8-14.1); RDW-SD 41.1 fL; WBC 8.09 10^3/uL (4.4-10.8)
[2021-11-09 12:43] LABS: Magnesium 1.3 mg/dL (1.8-2.4); Potassium 3.5 mmol/L (3.5-5.1)
[2021-11-11 06:48] LABS: Vitamin D 25 Total 55.3 ng/mL (30-100)
== END 2021-11-09 03:10 | disposition home or self-care (01) ==
LOC: LOS 03:09
PROVIDERS: PCP Nurse Practitioner; Visit Provider Nurse Practitioner
DX: E87.6 Hypokalemia (principal); F43.23 Adjustment disorder with mixed anxiety and depressed mood
CPT/HCPCS: 36415; 82306; 85027; 82088; 83735; 84132

== ENCOUNTER 2022-04-05 08:09 | Outpatient (CLI) | payer MEDICAID, SELFPAY ==
--- NOTE | 2022-04-05 08:00 | RT.EKG_ITS ---
APPROVED REPORT Exam: Resting ECG Reason for Exam: CAD Patient Location: O HR:66 bpm ECG Measurements Heart Rate 66 AXIS NV 202 P 36 QRSd 92 QRS -4 QT 376 T 15 QTc 394 Conclusion Sinus rhythm...normal P axis, V-rate 50- 99 Borderline prolonged NV interval...NV >202, V-rate 50- 90
== END 2022-04-05 08:10 | disposition home or self-care (01) ==
LOC: DI.CARD 08:11
PROVIDERS: PCP Nurse Practitioner; Visit Provider Internal Medicine Cardiovascular Disease
DX: I25.10 Atherosclerotic heart disease of native coronary artery without angina pectoris (principal)
CPT/HCPCS: 93010

== ENCOUNTER 2022-07-07 02:34 | Outpatient (CLI) | payer MEDICAID, SELFPAY ==
[2022-07-07 12:32] LABS: HCT 49.2 % (40.0-50.0); HGB 16.6 g/dL (13.5-17.5); MCH 27.4 pg (27.0-33.0); MCHC 33.7 % (32.0-36.0); MCV 81 fL (80-95); MPV 10.1 fL (8.0-11.0); Platelet Count 212 10^3/uL (130-400); RBC 6.05 10^6/uL (4.36-5.78); RDW 13.7 % (11.8-14.1); RDW-SD 39.8 fL; WBC 7.92 10^3/uL (4.4-10.8)
[2022-07-07 12:39] LABS: Hemoglobin A1C 7.2 % (<5.7)
[2022-07-07 12:44] LABS: ALT 53 U/L (16-63); AST 39 U/L (15-37); Albumin 4.2 g/dL (3.4-5.0); Alkaline Phosphatase 110 U/L (46-116); Anion Gap 10.3 mmol/L (3-11); BUN 16 mg/dL (7-18); Bilirubin, Total 0.6 mg/dL (0.2-1.0); CO2 26.7 mmol/L (21.0-32.0); CREATININE 1.2 mg/dL (0.70-1.30); Calcium 9.9 mg/dL (8.5-10.1); Calculated LDL 42 mg/dL (<100); Chloride 100 mmol/L (98-107); Cholesterol 122 mg/dL (<200); Estimated GFR 71.42 (mL/min/1.73m2); Glucose 137 mg/dL (74-106); HDL Cholesterol 35 mg/dL (40-60); Potassium 3.5 mmol/L (3.5-5.1); Sodium 137 mmol/L (136-145); Total Protein 7.2 g/dL (6.4-8.2); Triglyceride 229 mg/dL (<150)
== END 2022-07-07 02:35 | disposition home or self-care (01) ==
LOC: LOS 02:34
PROVIDERS: PCP Nurse Practitioner Family; Visit Provider Nurse Practitioner Family
DX: E78.5 Hyperlipidemia, unspecified (principal); E11.40 Type 2 diabetes mellitus with diabetic neuropathy, unspecified; I10 Essential (primary) hypertension; E87.6 Hypokalemia; F41.8 Other specified anxiety disorders; I25.10 Atherosclerotic heart disease of native coronary artery without angina pectoris; K21.9 Gastro-esophageal reflux disease without esophagitis
CPT/HCPCS: 36415; 80053; 80061; 85027; 83036

== ENCOUNTER 2022-08-01 01:41 | Outpatient (CLI) | payer MEDICAID, SELFPAY ==
--- NOTE | 2022-08-01 09:32 | DI.CTLCSR_ITS ---
Exam(s) CT CHEST LUNG CANCER SCREEN EXAM: CT CHEST LUNG CANCER SCREEN CLINICAL HISTORY: Screening for lung cancer,former smker, z87.899 TECHNIQUE: Imaging Protocol: Axial computed tomography images with coronal and sagittal reformatted images were created and reviewed. Low dose screening protocol. COMPARISON: CT CT CHEST PE CTA from 04/19/2019 CR XR CHEST 2V PA LATERAL from 08/08/2019 FINDINGS: Tracheobronchial tree: No bronchiectasis or mucus plugging.. Mediastinum and Virgiina: No dominant adenopathy or fluid collection. Pulmonary parenchyma: No consolidation or dominant measurable mass. No visible emphysematous changes. Lung Nodules: None. Pleura: No effusion. No pneumothorax. Heart: The heart is not dilated. coronary artery calcifications are seen. Aorta: Thoracic aorta non-dilated.Minimal atherosclerotic changes. Upper abdomen: Unremarkable. Bones: Degenerative changes in the spine. Soft Tissues: Unremarkable. IMPRESSION: No suspicious pulmonary nodules. Lung RADS Cat 1 - Negative: No nodules and definitely benign nodules Lung-RADS 1.0 CATEGORIES: Category 0 - Prior chest CT exam(s) being located for comparison. Category 1 - Annual screening in 12 months. No nodules or definitely benign nodules. Category 2 - Annual screening in 12 months. Benign appearance. Nodules with low likelihood of becomin g active cancer. Category 3 - 6-month follow-up. Probably benign. Short-term follow-up suggested. Nodules with low lik elihood of becoming active cancer. Category 4A - 3-month follow-up and CT/PET if >8 mm in size. Suspicious finding. Findings which requi re additional testing. Category 4B - Findings which require additional testing and tissue sampling. Category 4X - Category 3 or 4 nodules with additional features or imaging findings that increases the suspicion of malignancy. Modifier S- Potentially clinically significant findings (non lung cancer) RADIATION DOSE DELIVERED: 95.38mGy.cm Total DLP DATA REPOSITORY: All CT scans at this facility are submitted to the National Radiology Data Registry (NRDR) Dose Index Registry (DIR) with the [employer] (ACR). RADIATION OPTIMIZATION: All CT scans at this facility use at least one of these dose optimization te chniques: automated exposure control; mA and/or kV adjustment per patient size (includes targeted exa ms where dose is matched to clinical indication); or iterative reconstruction.
== END 2022-08-01 02:01 ==
LOC: DI 01:41
PROVIDERS: PCP Nurse Practitioner Family; Visit Provider Nurse Practitioner Family
DX: Z87.891 Personal history of nicotine dependence (principal); Z12.2 Encounter for screening for malignant neoplasm of respiratory organs
CPT/HCPCS: 71271

== ENCOUNTER → 2023-04-10 01:35 | Outpatient (CLI) | payer MEDICAID, SELFPAY ==
--- NOTE | 2023-04-10 08:15 | DI.NM_ITS ---
APPROVED REPORT Exam: Pharmacologic Patient Location: Out-Patient Room/Bed: Stress Nurse: Demetris Arenas RN Ordering Provider:DARBY LAI, Contact Number: [phone] BMI: 38.24 Baseline Rhythm: Sinus Rhythm Indications: Atypical chest pain. Medical History Medical History: CAD, asthma, NSTEMI, DM2, formoer smoker, obesity, GERD, depression, hypokalemia, sl eep apnea, HLD, HTN. Cardiac Medications: ASA, atorvastatin, potassium, HCTZ, losartan, magnesium, metoprolol. Allergies: No known drug allergies Cardiac Risk Factors: Obesity, asthma, DM,HTN, sleep apnea. Previous Cardiac Procedures: Cardiac stents. Pretest Chest Pain Characteristics: No chest pain Exercise History: Sedentary Physical Disabilities: None. Lung Sounds: Clear to auscultation Heart Sounds: Regular Stress Test Details Test: Pharmacologic stress was paired with low level exercise. Reason for pharmacologic stress test: Low baseline HR after taken betablocker. . Nuclear Acquisition: Rest Tc-99m/Stress Tc-99m 1 day Rest Isotope: Tc-99m Sestamibi. Dose: 11.0 Date: 04/10/2023 Injection Time: 0910 Stress Isotope: Tc-99m Sestamibi. Dose: 36.0 Date: 04/10/2023 Injection Time: 1114 HR Resting HR Supine: 62 bpm Max Heart Rate (APMHR): 165.793138 bpm Resting HR Standin bpm Target HR (85% APMHR): 140.681886 bpm Max HR Achieved: 105 bpm % of APMHR: 63.64 Recovery HR: 67 bpm HR response to stress: Normal HR response to stress BP Resting BP Supine: 112/82 mmHg Resting BP Standin/76 mmHg Max BP: 126/70 mmHg Recovery BP: 122/68 mmHg BP response to stress: Normal blood pressure response to stress. ECG Resting ECG: Sinus Rhythm Ectopy: none Stress ECG: Sinus Tachycardia ST Change: No significant ST segment changes noted Arrhythmia: none Recovery ECG: Sinus Rhythm Recovery Arrhythmia: none Clinical Rate Pressure Product: 40055 Stress ECG Conclusion 1. Resting electrocardiogram showed first-degree AV block 2. Patient underwent testing using pharmacologic stress with regadenoson 3. Peak heart rate achieved was 64% of predicted for age 4. Echocardiographic portion of the test was nondiagnostic 5. See MPI report Stress Test Summary STAGE HR BP SpO2 Symptoms NOTES Supine 62 112/82 94 none Standing 64 122/76 none 1 min post Lexiscan injection 104 120/82 95 none 3 min post Lexiscan injection 71 126/70 94 none 6 min post Lexiscan injection 67 122/68 95 none MPI Conclusion Myocardial perfusion is normal. There is no ischemia or evidence of prior infarction Ejection fraction is 54% with normal wall motion Radiologist Interpretation Radiologist agrees with Financial Legal Assistant's Interpretation. Radiologist Interpretation by: Prema Cuevas MD Interpretation Date/Time: 04/10/2023 15:32:56
[2023-04-10] MEDS: Regadenoson 0.4 MG/5 ML SYR IVP (13:44)
== END ==
PROVIDERS: PCP Nurse Practitioner Family; Visit Provider Internal Medicine Cardiovascular Disease
DX: I25.10 Atherosclerotic heart disease of native coronary artery without angina pectoris (principal)
CPT/HCPCS: 78452; 93017; J2785

== ENCOUNTER 2023-04-26 03:10 | Outpatient (CLI) | payer MEDICAID, SELFPAY ==
[2023-04-26 12:39] LABS: Abs Immature Grans 0.04 10^3/uL (0.0-0.06); Absolute Basophil Count 0.04 10^3/uL (0.0-0.2); Absolute Eosinophil Count 0.23 10^3/uL (0.0-0.7); Absolute Lymphocyte Count 1.31 10^3/uL (1.2-3.4); Absolute Monocyte Count 0.56 10^3/uL (0.1-0.8); Absolute Neutrophil Count 6.52 10^3/uL (1.2-6.7); Basophils % 0.5; Eosinophils % 2.6; HCT 51.8 % (40.0-50.0); HGB 17.2 g/dL (13.5-17.5); Immature Grans % 0.5; Lymphocytes % 15.1; MCH 27.4 pg (27.0-33.0); MCHC 33.2 % (32.0-36.0); MCV 83 fL (80-95); MPV 10.2 fL (8.0-11.0); Monocytes % 6.4; Neutrophils % 74.9; Platelet Count 244 10^3/uL (130-400); RBC 6.28 10^6/uL (4.36-5.78); RDW 13.9 % (11.8-14.1); RDW-SD 41.1 fL
[2023-04-26 13:03] LABS: Anion Gap 11.2 mmol/L (3-11); BUN 20 mg/dL (7-18); CO2 24.8 mmol/L (21.0-32.0); CREATININE 1.3 mg/dL (0.70-1.30); Calcium 9.9 mg/dL (8.5-10.1); Chloride 100 mmol/L (98-107); Estimated GFR 64.88 (mL/min/1.73m2); Glucose 212 mg/dL (74-106); Magnesium 1.8 mg/dL (1.8-2.4); Potassium 3.8 mmol/L (3.5-5.1); Sodium 136 mmol/L (136-145); TSH (W/Ref FT4) 1.23 uIU/mL (0.36-3.74)
== END 2023-04-26 03:11 | disposition home or self-care (01) ==
LOC: LOS 03:10
PROVIDERS: PCP Nurse Practitioner Family; Visit Provider Nurse Practitioner Family
DX: R25.2 Cramp and spasm (principal)
CPT/HCPCS: 36415; 80048; 83735; 84443; 85025

== ENCOUNTER 2023-07-07 09:53 | Outpatient (RCR) | payer MEDICAID, SELFPAY ==
--- NOTE | 2023-07-07 10:50 | HOLTER_ITS ---
APPROVED REPORT Exam Type: HOLTER MONITOR APPLICATION Reason for Test: palpitations Patient Location: O Conclusion 1. Sinus rhythm throughout, rate range 55-115(average 73) bpm. 2. Rare PVCS, no VT 3. No pauces 4. No atrial fibrillation.
== END 2023-07-12 23:59 | disposition home or self-care (01) ==
LOC: CARDOPNVT 09:53
PROVIDERS: PCP Nurse Practitioner Family; Visit Provider Internal Medicine Cardiovascular Disease
DX: R00.2 Palpitations (principal)
CPT/HCPCS: 93225; 93226

== ENCOUNTER 2023-10-12 15:07 | Outpatient (REF) | payer MEDICAID, SELFPAY ==
[2023-10-12 13:34] LABS: Microalb ug/mg Crea 31.6 ug/mg Cr
== END 2023-10-12 15:08 | disposition home or self-care (01) ==
LOC: LBN 15:07
PROVIDERS: PCP Nurse Practitioner Family; Visit Provider Nurse Practitioner Family
DX: E11.9 Type 2 diabetes mellitus without complications (principal)
CPT/HCPCS: 82043; 82570

== ENCOUNTER → 2023-11-03 00:07 | Outpatient (CLI) | payer MEDICAID, SELFPAY ==
--- NOTE | 2023-11-03 08:30 | DI.US_ITS ---
APPROVED REPORT EXAM: Comprehensive 2D, Doppler, and color-flow Echocardiogram Patient Location: Out-Patient Refractory Worker: Iggy Johnson RDCS (AE) Indications: Dyspnea, ASCVD, CAD Other Information Study Quality: Poor. Technically limited study due to body habitus. Conclusion Technically difficult and limited study Normal left ventricular wall thickness and chamber size. Ejection fraction is 55%. Wall motion is n ormal Normal right ventricular size and function Both atria are normal in size No structural or hemodynamically significant valvular disease is identified Wall motion Left Ventricle The left ventricle is normal size. The left ventricular systolic function is normal. The left ventric ular ejection fraction is within the normal range. There is normal left ventricular wall thickness. T here is normal LV segmental wall motion. There is no ventricular septal defect visualized. LVEF is 55 %. Right Ventricle The right ventricle is normal size. The right ventricular systolic function is normal. Atria The left atrium size is normal. The right atrium size is normal. The interatrial septum is intact wit h no evidence for an atrial septal defect. Aortic Valve Aortic valve is probably trileaflet. There is no aortic valvular stenosis. No aortic regurgitation is present. Mitral Valve The mitral valve is normal in structure. No evidence of mitral valve stenosis. Trace mitral regurgita tion. Tricuspid Valve The tricuspid valve is normal in structure. There is no tricuspid valve stenosis. Trace tricuspid reg urgitation. Unable to assess PA pressure. Pulmonic Valve The pulmonary valve is normal in structure. There is no pulmonic valvular stenosis. Mild pulmonic reg urgitation. Great Vessels The aortic root is normal in size. The ascending aorta is normal in size. Aortic arch is normal in ca liber. IVC is normal in size and collapses >50% with inspiration. Pericardium There is no pericardial effusion. 2D Dimensions IVSD d PLAX 0.57 cm M: 0.6-1.2 Ao Root d 2.64 cm M: 3.1 - 3.7 LVPW d PLAX 0.61 cm M: 0.6 - 1.2 Ao Asc Diam d 3.03 cm M: 2.6 - 3.4 LVID d PLAX 4.42 cm M: 4.2 - 5.8 LVDs 3.17 cm M: 2.5 - 4.0 LV EF Teichholz 54.7 % FS 28.18 % LV EDV (Teich) 88.4 mL LV ESV (Teich) 40.1 mL Stroke Vol Index (Teich) 22.70 M-Mode TAPSE 1.72 cm (M/F) >1.7 Auto EF LV EDV A4C 109.7 mL LV EDV A2C 120.9 mL LV EDV BP 115.1 mL LV ESV A4C 52.1 mL LV ESV A2C 55.0 mL LV ESV BP 53.5 mL LVEF(%) A4C 52.5 % LVEF(%) A2C 54.5 % LVEF(%) BP 53.5 % LV SV A4C 57.5 ml LV SV A2C 65.9 ml LV SV BP 61.6 ml LV CO A4C 3.6 L/min LV CO A2C 4.1 L/min LV CO BP 3.9 L/min HR A4C 63.27 BPM HR A2C 62.72 BPM LV EDV Index (BP) LA Volume LA Length A4C 4.2 cm LA Length A2C 3.3 cm LA Area A4C s 12.93 cm2 LA Area A2C s 9.56 cm2 LA Vol A4C A-L 33.92 mL LA Vol A2C A-L 23.18 mL LA Vol Biplane A-L 31.4 mL LA Vol/BSA A4C A-L LA Vol/BSA A2C A-L LA Vol/BSA BP A-L 14.7 mL/m2 LA Vol A4C MOD 29.6 mL LA Vol A2C MOD 22.5 mL LA Vol BP MOD 28.1 mL RA Volume RA Area A4C 13.3 cm2 RA ESV A4C (A-L) 30.6mL RA Vol/BSA A4C A-L RA Length A4C 4.9 cm RA ESV A4C (MOD) 30.0mL LV Diastology MV E' medial 0.077 (>0.07 m/s) MV E Vmax 0.79 (0.4-1.3 m/s) MV E/E' MED 10.31 (<14) MV A Vmax 0.80 (0.4-1.3 m/s) MV E' lateral 0.107 (>0.1 m/s) E/A Ratio 1.0 MV E/E' LAT 7.35 (<14) MV E' Average 0.092 m/s MV E/E'(average) 8.58 Aortic Valve AoV Vmax 1.12 m/s LVOT Vmax 0.88 m/s AoV Peak Grad 5.0 mmHg LVOT Peak Grad 3.1 mmHg AoV Area (Vmax) 2.33 cm2 LVOT VTI 0.169 m AoV VTI 0.242 m LVOT Mean Grad 1.7 mmHg AoV Mean Jason. 0.77 m/s LVOT SV 50.12 mL AoV Mean Grad 2.7 mmHg LVOT Diam s 1.90 cm AoV Area (VTI) 2.07 cm2 Velocity Ratio 0.79 Mitral Valve MV DT 193 (160-240 msec) Pulmonary Valve PV Vmax 0.95 (0.5-1.5 m/s) RVOT Vmax 0.49 m/s PV Peak Grad 3.6 mmHg RVOT Peak Gr. 1.0 mmHg PV Mean Jason 0.68 m/s RVOT VTI 0.108 m PV Mean Grad 2.1 mmHg RVOT Mean Gr. 0.6 mmHg
== END ==
PROVIDERS: PCP Nurse Practitioner Family; Visit Provider Nurse Practitioner Family
DX: I25.119 Atherosclerotic heart disease of native coronary artery with unspecified angina pectoris (principal); R06.00 Dyspnea, unspecified
CPT/HCPCS: 93306

== ENCOUNTER → 2023-11-20 05:10 | Outpatient (CLI) | payer MEDICAID, SELFPAY ==
--- NOTE | 2023-11-20 08:56 | DI.CTLCSR_ITS ---
Exam(s) CT CHEST LUNG CANCER SCREEN EXAM: CT CHEST LUNG CANCER SCREEN CLINICAL HISTORY: Screening for lung cancer,current smoker, F17.200. TECHNIQUE: Imaging Protocol: Low Dose Technique CONTRAST MATERIAL: None COMPARISON: CT CT CHEST LUNG CANCER SCREEN from 08/01/2022 FINDINGS: CHEST: LUNGS: There are no ominous pulmonary nodules. There are no confluent infiltrates. No pleural effusi ons. MEDIASTINUM: There is no obvious hilar nor mediastinal adenopathy. CARDIAC: Heart size is normal. There is no pericardial effusion.Caliber of the thoracic aorta is wit hin normal limits. OTHER: OSSEOUS: No significant osseous lesions.. IMPRESSION: 1. No significant pulmonary nodules. 2. No infiltrates nor pleural effusions. No intrathoracic adenopathy. 3. Lung RADS Cat 1 - Negative: No nodules and definitely benign nodules Lung-RADS 1.0 CATEGORIES: Category 0 - Prior chest CT exam(s) being located for comparison. Category 1 - Annual screening in 12 months. No nodules or definitely benign nodules. Category 2 - Annual screening in 12 months. Benign appearance. Nodules with low likelihood of becomin g active cancer. Category 3 - 6-month follow-up. Probably benign. Short-term follow-up suggested. Nodules with low lik elihood of becoming active cancer. Category 4A - 3-month follow-up and CT/PET if >8 mm in size. Suspicious finding. Findings which requi re additional testing. Category 4B - Findings which require additional testing and tissue sampling. Category 4X - Category 3 or 4 nodules with additional features or imaging findings that increases the suspicion of malignancy. Modifier S- Potentially clinically significant findings (non lung cancer) RADIATION DOSE DELIVERED: 87.3mGy.cm Total DLP DATA REPOSITORY: All CT scans at this facility are submitted to the National Radiology Data Registry (NRDR) Dose Index Registry (DIR) with the [employer] (ACR). RADIATION OPTIMIZATION: All CT scans at this facility use at least one of these dose optimization te chniques: automated exposure control; mA and/or kV adjustment per patient size (includes targeted exa ms where dose is matched to clinical indication); or iterative reconstruction.
== END ==
PROVIDERS: PCP Nurse Practitioner Family; Visit Provider Nurse Practitioner Family
DX: F17.200 Nicotine dependence, unspecified, uncomplicated (principal); Z12.2 Encounter for screening for malignant neoplasm of respiratory organs
CPT/HCPCS: 71271

== ENCOUNTER 2023-12-25 08:57 | Inpatient (IN) | payer MEDICAID, SELFPAY ==
[2023-12-25] VITALS (55 sets, daily range): BP systolic 101–165; BP diastolic 39–118; PULSE 57–82; RESP 12–21; TEMP 36–36.4; O2SAT 95–100
--- NOTE | 2023-12-25 09:00 | RT.EKG_ITS ---
APPROVED REPORT Exam: Resting ECG Reason for Exam: sob Patient Location: E HR:76 bpm ECG Measurements Heart Rate 76 AXIS AZ 207 P 63 QRSd 95 QRS -4 QT 495 T 18 QTc 556 Conclusion Sinus rhythm 76 normal axis long QTC 556 no stemi
--- NOTE | 2023-12-25 09:25 | DI.RAD_ITS ---
Exam(s) XR PORTABLE CHEST AP EXAM: XR PORTABLE CHEST AP CLINICAL HISTORY: chest pain. TECHNIQUE: 2D digital imaging was performed. COMPARISON: CR XR CHEST 2V PA LATERAL from 08/08/2019 FINDINGS: Single AP portable view. Lordotic technique Heart size is upper normal. The mediastinum is not widened. Lungs are clear. No infiltrates nor obvious pleural effusions. IMPRESSION: No acute pulmonary findings on this single AP portable view of the chest. DATA REPOSITORY: RADIATION DOSE DELIVERED:
[2023-12-25 09:26] LABS: Abs Immature Grans 0.03 10^3/uL (0.0-0.06); Absolute Basophil Count 0.03 10^3/uL (0.0-0.2); Absolute Eosinophil Count 0.17 10^3/uL (0.0-0.7); Absolute Monocyte Count 0.59 10^3/uL (0.1-0.8); Absolute Neutrophil Count 6.42 10^3/uL (1.2-6.7); Basophils % 0.4 %; HCT 46.9 % (40.0-50.0); Immature Grans % 0.4 %; Lymphocytes % 15.2 %; MCH 27.5 pg (27.0-33.0); MCHC 34.1 % (32.0-36.0); MCV 81 fL (80-95); MPV 9.8 fL (8.0-11.0); Monocytes % 6.9 %; Neutrophils % 75.1 %; Platelet Count 234 10^3/uL (130-400); RBC 5.81 10^6/uL (4.36-5.78); RDW 14.2 % (11.8-14.1); RDW-SD 41.3 fL; WBC 8.54 10^3/uL (4.4-10.8)
[2023-12-25] MEDS: Aspirin 81 MG CHEW 324 MG CH (09:26)
[2023-12-25 09:47] LABS: ALT 45 U/L (16-63); AST 38 U/L (15-37); Albumin 3.9 g/dL (3.4-5.0); Alkaline Phosphatase 123 U/L (46-116); Anion Gap 10.4 mmol/L (3-11); BUN 18 mg/dL (7-18); Bilirubin, Total 0.92 mg/dL (0.2-1.0); CO2 31.6 mmol/L (21.0-32.0); CREATININE 1.2 mg/dL (0.70-1.30); Calcium 9.4 mg/dL (8.5-10.1); Chloride 97 mmol/L (98-107); Estimated GFR 70.98 (mL/min/1.73m2); Glucose 245 mg/dL (74-106); Magnesium 1.4 mg/dL (1.8-2.4); NT-proBNP 16 pg/mL (<300); Sodium 139 mmol/L (136-145); Total Protein 7.5 g/dL (6.4-8.2); Troponin I < 50 ng/L (< or =60)
[2023-12-25 09:48] LABS: Potassium 2.6 mmol/L (3.5-5.1)
--- NOTE | 2023-12-25 09:51 | ED.GENADUL_ITS ---
Discharge Plan Disposition Patient Disposition: Admit to [facility] Condition: Stable Discharge Details Clinical Impression: Chest pain, Hypokalemia, Breath shortness, Hypomagnesemia, Prolonged Q-T interval on ECG Primary Care Provider: Gladis Azul ED Provider: Elizabeth Adam Home Meds and New Rx's Prescriptions: No Action Jardiance 25 mg tablet 25 mg PO DAILY Qty: 90 3RF pantoprazole 40 mg tablet,delayed release (DR/EC) 40 mg PO DAILY Qty: 90 3RF sildenafil [Viagra] 25 mg tablet 25 mg PO DAILY PRN (Reason: sexual activity) Qty: 10 0RF Rx Instructions: administer 30 minutes to 4 hours before activity nitroglycerin 0.4 mg tablet, sublingual 0.4 mg SL Q5M PRN (Reason: chest pain) Qty: 25 3RF cyclobenzaprine 5 mg tablet 5 mg PO TID PRN (Reason: back pain) Qty: 30 0RF Rx Instructions: Take 1 tablet by mouth three times a day as needed for back pain potassium gluconate 595 mg (99 mg) tablet 99 mg PO DAILY Qty: 90 3RF CPAP machine miscellaneous Centrum Complete 18-400 mg-mcg tablet 1 tab PO DAILY (DME) blood sugar diagnostic Strip See Rx Instructions .ROUTE .MEDSUPPLY Qty: 200 3RF Rx Instructions: Check blood sugars twice a day (DME) lancets 30 gauge misc See Rx Instructions .Route Qty: 200 3RF Rx Instructions: Check blood sugar twice a day albuterol sulfate 90 mcg/actuation aero powdr breath act w/sensor 90 mcg inhalation Q6H PRN (Reason: shortness of breath or wheezing) Qty: 1 3RF glipizide 5 mg tablet 5 mg PO BID Qty: 180 3RF fluoxetine 20 mg capsule 40 mg PO DAILY Qty: 90 4RF atorvastatin 80 mg tablet 80 mg PO DAILY Qty: 90 3RF metformin 1,000 mg tablet 1,000 mg PO BID Qty: 180 4RF hydrochlorothiazide 25 mg tablet 25 mg PO DAILY Qty: 90 4RF losartan 50 mg tablet 50 mg PO DAILY Qty: 90 3RF aspirin [Aspir-81] 81 MG tablet,delayed release (DR/EC) 81 mg PO DAILY (DME) blood-glucose meter [[employer] Ultra2 Meter] Kit See Rx Instructions .ROUTE .MEDSUPPLY Qty: 1 0RF Rx Instructions: Test once weekly magnesium oxide 500 mg tablet 500 mg PO DAILY albuterol sulfate [Proventil HFA] 90 mcg/actuation HFA aerosol inhaler 2 puff Inhalation Q6H PRN Qty: 1 5RF Rx Instructions: spacer metoprolol succinate 25 mg tablet extended release 24 hr 25 mg PO DAILY Qty: 90 6RF Arnuity Ellipta 100 mcg/actuation blister with device 1 inh inhalation DAILY Qty: 30 3RF HPI General Date/Time Provider Initiated Documentation: 12/25/23 09:11 . Limitations to Documentation: no limitations . Information obtained by: patient . HPI Narrative: 58-year-old gentleman with past medical history of diabetes, hypertension, hyperlipidemia, CAD (PCI x3, 2019) presents for evaluation of shortness of breath and chest pain. He reports that he started having the symptoms this morning after he woke up. He reports that the shortness of breath has been intermittent for the last couple of weeks. It does not interfere with his ability to do daily tasks. It has not been exertional shortness of breath. Not associated with fever or cough. He reports that the shortness of breath this morning did feel worse and may be made it difficult for him to get around the house. He reports that the chest pain is right-sided, tender to touch. Does not radiate. He reports that he felt that this morning and it was severe, but it resolved spontaneously. There are no exacerbating or relieving factors. He does report that he has been having some chest pain over the last few weeks. He reports prior to today his last episode of chest pain was a week ago. Chest pain is nonexertional. Reports he is compliant with his medications and did take a baby aspirin today. Related Data Home Medications ?Medication ?Instructions ?Recorded ?Confirmed aspirin 81 mg tablet,delayed 81 mg PO DAILY 08/24/15 12/25/23 release (Aspir-) potassium gluconate 595 mg (99 mg) 99 mg (0.1664 x 595 mg (99 mg)) PO 05/02/18 12/25/23 tablet DAILY #90 tabs CPAP machine miscellaneous 06/24/19 10/12/23 blood-glucose meter ([employer] #1 ea 09/10/19 12/25/23 Ultra2 Meter kit) multivitamin-ferrous 1 tab PO DAILY 07/09/20 12/25/23 fumarate-folic acid 18 mg-400 mcg tablet (Centrum Complete) magnesium oxide 500 mg PO DAILY 07/13/21 12/25/23 blood sugar diagnostic #200 ea 05/09/22 12/25/23 lancets 30 gauge #200 ea 05/09/22 12/25/23 empagliflozin 25 mg tablet 25 mg PO DAILY #90 tabs 01/12/23 12/25/23 (Jardiance) pantoprazole 40 mg tablet,delayed 40 mg PO DAILY #90 tabs 01/12/23 12/25/23 release sildenafil 25 mg tablet (Viagra) 25 mg PO DAILY PRN sexual activity 01/12/23 12/25/23 #10 tabs albuterol sulfate 90 mcg/actuation 90 mcg inhalation Q6H PRN 04/11/23 12/25/23 breath activated powder shortness of breath or wheezing #1 inhaler,sensor ea glipizide 5 mg tablet 5 mg PO BID #180 tabs 04/11/23 12/25/23 atorvastatin 80 mg tablet 80 mg PO DAILY #90 tabs 07/04/23 12/25/23 fluoxetine 20 mg capsule 40 mg (2 x 20 mg) PO DAILY #90 caps 07/04/23 12/25/23 hydrochlorothiazide 25 mg tablet 25 mg PO DAILY #90 tabs 07/04/23 12/25/23 losartan 50 mg tablet 50 mg PO DAILY #90 tabs 07/04/23 12/25/23 metformin 1,000 mg tablet 1,000 mg PO BID #180 tabs 07/04/23 12/25/23 albuterol sulfate 90 mcg/actuation 2 puff inhalation Q6H PRN ##1 09/14/23 12/25/23 aerosol inhaler (Proventil HFA) metoprolol succinate 25 mg 25 mg PO DAILY #90 tabs 09/21/23 12/25/23 tablet,extended release 24 hr cyclobenzaprine 5 mg tablet 5 mg PO TID PRN back pain #30 tabs 10/12/23 12/25/23 nitroglycerin 0.4 mg sublingual 0.4 mg sublingual Q5M PRN chest 10/12/23 12/25/23 tablet pain #25 tabs fluticasone furoate 100 1 inh inhalation DAILY #30 ea 05/27/24 07/15/24 mcg/actuation blister powder for inhalation (Arnuity Ellipta) Previous Rx's ?Medication ?Instructions ?Recorded potassium gluconate 595 mg (99 mg) 99 mg (0.1664 x 595 mg (99 mg)) PO 05/02/18 tablet DAILY #90 tabs blood-glucose meter ([employer] #1 ea 09/10/19 Ultra2 Meter kit) blood sugar diagnostic #200 ea 05/09/22 lancets 30 gauge #200 ea 05/09/22 empagliflozin 25 mg tablet 25 mg PO DAILY #90 tabs 01/12/23 (Jardiance) pantoprazole 40 mg tablet,delayed 40 mg PO DAILY #90 tabs 01/12/23 release sildenafil 25 mg tablet (Viagra) 25 mg PO DAILY PRN sexual activity 01/12/23 #10 tabs albuterol sulfate 90 mcg/actuation 90 mcg inhalation Q6H PRN 04/11/23 breath activated powder shortness of breath or wheezing #1 inhaler,sensor ea glipizide 5 mg tablet 5 mg PO BID #180 tabs 04/11/23 atorvastatin 80 mg tablet 80 mg PO DAILY #90 tabs 07/04/23 fluoxetine 20 mg capsule 40 mg (2 x 20 mg) PO DAILY #90 caps 07/04/23 hydrochlorothiazide 25 mg tablet 25 mg PO DAILY #90 tabs 07/04/23 losartan 50 mg tablet 50 mg PO DAILY #90 tabs 07/04/23 metformin 1,000 mg tablet 1,000 mg PO BID #180 tabs 07/04/23 albuterol sulfate 90 mcg/actuation 2 puff inhalation Q6H PRN ##1 09/14/23 aerosol inhaler (Proventil HFA) metoprolol succinate 25 mg 25 mg PO DAILY #90 tabs 09/21/23 tablet,extended release 24 hr cyclobenzaprine 5 mg tablet 5 mg PO TID PRN back pain #30 tabs 10/12/23 nitroglycerin 0.4 mg sublingual 0.4 mg sublingual Q5M PRN chest 10/12/23 tablet pain #25 tabs fluticasone furoate 100 1 inh inhalation DAILY #30 ea 11/06/23 mcg/actuation blister powder for inhalation (Arnuity Ellipta) Allergies Allergy/AdvReac Type Severity Reaction Status Date / Time No Known Allergies Allergy Verified 12/25/23 09:03 General Stated Complaint: Chest Pain LUCIO: 3 Exam Narrative Exam Narrative: Review of Systems: All systems reviewed & are unremarkable except as noted in HPI and below Well-developed, no acute distress NCAT PERRL, normal conjunctiva RRR, no murmur Some right sided parasternal tenderness, no bruising noted Unlabored respiratory effort clear bilaterally Nondistended abdomen soft nontender Extremities w/o deformity, no cyanosis, no edema No rashes or lesions. no focal neurologic deficits Appropriate mood and affect Course Vital Signs Vital signs: Vital Signs Temperature 36.4 C L 12/25/23 09:00 Pulse 80 12/25/23 09:00 Respiratory Rate 18 12/25/23 09:00 Blood Pressure 140/118 H 12/25/23 09:00 Pulse Oximetry 98 12/25/23 09:00 Temperature 36.4 C L 12/25/23 09:00 Temperature Source Skin 12/25/23 09:00 Pulse 80 12/25/23 09:00 Respiratory Rate 20 12/25/23 09:30 Respiratory Effort Normal, Non-Labored 12/25/23 09:30 Respiratory Depth Normal 12/25/23 09:30 Respiratory Pattern Normal 12/25/23 09:30 Blood Pressure 140/118 H 12/25/23 09:00 Blood Pressure Position Sitting 12/25/23 09:00 Pulse Oximetry 98 12/25/23 09:00 Oxygen Delivery Method Room Air 12/25/23 09:00 Oxygen Flow Rate 0 12/25/23 09:00 Lab/Test Results Lab/Test Results: Laboratory Tests Range/Units 12/25/23 09:14 WBC (4.4-10.8) 10^3/uL 8.54 RBC (4.36-5.78) 10^6/uL 5.81 H Hgb (13.5-17.5) g/dL 16.0 Hct (40.0-50.0) % 46.9 MCV (80-95) fL 81 MCH (27.0-33.0) pg 27.5 MCHC (32.0-36.0) % 34.1 RDW (11.8-14.1) % 14.2 H Plt Count (130-400) 10^3/uL 234 MPV (8.0-11.0) fL 9.8 Immature Gran % % 0.4 Neutrophils % % 75.1 Lymphocytes % % 15.2 Monocytes % % 6.9 Eosinophils % % 2.0 Basophils % % 0.4 Nucleated RBC % (0.0-0.3) % 0.0 Absolute Neutrophils (1.2-6.7) 10^3/uL 6.42 Absolute Lymphocytes (1.2-3.4) 10^3/uL 1.30 Absolute Monocytes (0.1-0.8) 10^3/uL 0.59 Absolute Eosinophils (0.0-0.7) 10^3/uL 0.17 Absolute Basophils (0.0-0.2) 10^3/uL 0.03 Sodium (136-145) mmol/L 139 Potassium (3.5-5.1) mmol/L 2.6 L* Chloride (98-107) mmol/L 97 L Carbon Dioxide (21.0-32.0) mmol/L 31.6 Anion Gap (3-11) mmol/L 10.4 BUN (7-18) mg/dL 18 Creatinine (0.70-1.30) mg/dL 1.2 Est GFR (CKD-EPI 2020) (mL/min/1.73m2) 70.98 Glucose (74-106) mg/dL 245 H Calcium (8.5-10.1) mg/dL 9.4 Magnesium (1.8-2.4) mg/dL 1.4 L Total Bilirubin (0.2-1.0) mg/dL 0.92 AST (15-37) U/L 38 H ALT (16-63) U/L 45 Alkaline Phosphatase (46-116) U/L 123 H Troponin I (< or =60) ng/L < 50 NT-Pro-B Natriuret Pep (<300) pg/mL 16 Total Protein (6.4-8.2) g/dL 7.5 Albumin (3.4-5.0) g/dL 3.9 Medical Decision Making Emergent evaluation of chest pain and shortness of breath. Symptoms are nonexertional. EKG does not reveal acute ischemic changes. He does have significant risk factors. I reviewed his medical record and noted that his last nuclear stress test was March 2023 and this was unremarkable. He does follow with cardiology here and also at [facility]. Initial differential includes ACS, unstable angina, musculoskeletal pain, unlikely heart failure or infectious etiology. Plan for full dose aspirin. Nitroglycerin if pain returns. Will continue to monitor, check electrolytes. Anticipate admission for this high risk chest pain. 0950 Lab work reviewed. No derangements of significance in the CBC. No leukocytosis or anemia. Platelet count is normal. His CMP does have concerning hypokalemia with a potassium level of 2.6 as well as hypomagnesemia of 1.4. Is also noted that he has a prolonged QTc interval on his EKG. I will replete the potassium and magnesium via IV infusion. His glucose is elevated, but no indication of DKA. Given electrolyte derangement and high risk history, will admit to the hospital for electrolyte replacement and full cardiac rule out. Patient would likely benefit from repeat stress testing as well. Discussed with the hospitalist, but he declines to admit the patient until the second troponin has resulted. 1310 second trop is negative, admission accepted. Medical Records Medical records reviewed: Yes I reviewed the patient's medical records. Lab Data Lab results reviewed: Yes I reviewed the patient's lab results. Quality:[facility] Health Related Social Needs: No Data to Display PFSH All Active Problems (Updated 12/25/23 @ 13:08 by Yobany Minaya MD) Stable angina (Acute) Prolonged Q-T interval on ECG (Acute) Hypomagnesemia (Acute) Breath shortness (Acute) Hypokalemia (Acute) Chest pain (Acute) Low back pain (Acute) Dyspnea (Acute) managed with symacort Palpitations (Acute) Muscle cramps (Acute) Type 2 diabetes mellitus with diabetic neuropathy (Chronic) Erectile dysfunction (Acute) Situational mixed anxiety and depressive disorder (Acute) Hypokalemia (Acute) Asthma (Acute) Anxiety (Chronic) Coronary artery disease (Chronic) Obesity (BMI 30-39.9) (Acute 07/11/17) Gastroesophageal reflux disease without esophagitis (Acute 07/11/17) Sleep apnea with use of continuous positive airway pressure (CPAP) (Acute 10/19/15) He uses his CPAP Hyperlipidemia (Acute 05/14/07) Essential hypertension (Acute) Medical History History of asthma Non-STEMI (non-ST elevated myocardial infarction) (~04/19/19) Smoker (01/30/18) quit 2019 Surgical History H/O heart artery stent (~04/19/19) MARLA to distal RCA and proximal LAD Family History Mother , age 65 Diabetes Heart disease CHF Father , age 69 Cancer Lung cancer Sister No problems noted. Sister No problems noted. Sister No problems noted. Brother No problems noted. Brother No problems noted. Son No problems noted. Daughter No problems noted. Social History Smoking/Tobacco Use Status: Former Tobacco Use tobacco type: cigarettes Quit Date: 04/19/19 Tobacco: How many years used: 30 Quit status: quit date established Second Hand Exposure: Yes Smoking risk assessment performed?: Yes Alcohol Intake: never Drug use: Never Substance use type: does not use Adopted: No Caregiver/Support person: No Foster care: No Household members: none Housing: apartment Number of Children: 2 number of grandchildren: 1 Communication Needs: None Education Level: middle school Details: 8th grade Do you need help understanding health information?: Always current occupation: disabled Pets and animals: Yes Pets and animals: dog(s) and horse(s) Sexually active: No Do you think of yourself as: straight/heterosexual Current gender identity: female What is your relationship status?: never How often do you talk on the phone with friends or family?: decline to answer How often do you get together with friends or relatives?: decline to answer How often do you attend jehovah's witness or jehovah's witness services?: decline to answer Do you belong to any clubs or organized social groups?: decline to answer Panel score (0-1 are the most socially isolated patients): 0 Duration: > 90 minutes/day Frequency: daily Caryn/Adventism: None Special caryn needs: No Seatbelt use: always Helmet use: No Drive intox or ride w/intox cart driver: No Firearms in home: Yes Firearms unloaded and locked: Yes Do you feel safe at home: Yes Do you feel safe in your relationship?: Yes Victim of physical abuse: No Victim of emotional abuse: No Victim of sexual abuse: No
[2023-12-25] MEDS: MAGNESIUM SULFATE 2 GM/50 ML BAG IVINF (10:07)
[2023-12-25] MEDS: POTASSIUM CHLORIDE 10 MEQ/100 ML BAG 100 MEQ IVINF ×2 (10:08→11:17)
[2023-12-25] MEDS: Normal Saline 250 ML 30 ML IV (10:45)
[2023-12-25 12:48] LABS: Troponin I < 50 ng/L (< or =60)
--- NOTE | 2023-12-25 13:03 | W.PM.HP.N ---
Date of service: 12/25/23 Time of Service: 13:03 Assessment and Plan Assessment and plan (1) Stable angina: Status: Acute Assessment and plan: -patient with history of CAD s/p 3x stents in 2019, NIDDM, HTN, HLD presented with intermentent SOB and sudden onset chest pain and worsening SOB this AM that resolved on its own -EKG without findings concerning for acute PR -2x negative troponins -however, given patients fransico pain this AM, and significant medical history, decision was made for patient to be admitted for planned Nuclear Stress test on Monday -will hold betablocker for 48hrs prior to stress test -continue daily 81mg ASA -will continue all other medications as noted below (2) Prolonged Q-T interval on ECG: Status: Acute Assessment and plan: -QT 494 though patient is not on any prolonging medications -likely due to hypokalemia as noted below (3) Hypokalemia: Status: Acute Assessment and plan: -K 2.6 in ED -s/p 10mEqIV K and 2g Mg -will repeat BMP at 16:00 and give additional K as needed (4) Type 2 diabetes mellitus with diabetic neuropathy: Status: Chronic Assessment and plan: -continue home gabapentin -holding home glipizide and metformin during hospitalization -SSI, CCD (5) Coronary artery disease: Status: Chronic Assessment and plan: -as noted above -holding home metoprolol for 48hr prior to stress test Qualifiers: Associated angina: with unspecified form of angina Coronary Disease-Associated Artery/Lesion type: [place] artery [place] vs. transplanted heart: [place] heart Qualified Code(s): I25.119 - Atherosclerotic heart disease of [place] coronary artery with unspecified angina pectoris (6) Gastroesophageal reflux disease without esophagitis: Status: Acute Assessment and plan: -continue home protonix (7) Sleep apnea with use of continuous positive airway pressure (CPAP): Status: Acute Assessment and plan: -CPAP HS on home settings (8) Hyperlipidemia: Status: Acute Assessment and plan: -continue 80mg lipitor HS Qualifiers: Hyperlipidemia type: mixed hyperlipidemia Qualified Code(s): E78.2 - Mixed hyperlipidemia (9) Essential hypertension: Status: Acute Assessment and plan: -continue home losartan and HCTZ History of Present Illness History of Present Illness Chief Complaint: chest pain Narrative: 58-year-old male with a past medical history of [id number] diabetes, hypertension, hyperlipidemia, coronary artery disease status post 3 stents placed in 2019, presenting the emergency department complaints of shortness of breath and chest pain. Patient stated that he felt like he was first noticing chest pain when he woke up this morning with associated shortness of breath though he states that he has been having intermittent shortness of breath for the last few weeks so he has not been affecting his ability to perform daily tasks and has not been exertional in nature. However, waking up this morning he did notice shortness of breath and chest pain that were worse which made it difficult for him to ambulate around the house. Additionally he reports right-sided chest pain that is tender to the touch that does not radiate, and that his initial episode of chest pain with associated shortness of breath resolved spontaneously. Otherwise patient denies any lightheadedness, dizziness, neck arm or back pain, nausea vomiting, diarrhea or constipation. In the emergency department the patient was noted as having normal vital signs, normal CBC, normal CMP with the exception of hypokalemia with a potassium of 2.6, and initial negative troponin and EKG without ST elevations or depression, no t-wave inversions but with prolonged QT of 495. Emergency room physician graciously held onto the patient to confirm that second troponin was negative which it was. At which time it was determined that the patient would be admitted for stable angina and significantly high heart score requiring nuclear stress test. Review of Systems All systems reviewed & are unremarkable except as noted in HPI and below PFSH All Active Problems (Updated 12/25/23 @ 14:31 by EDDIE DOS SANTOS) Stable angina (Acute) Prolonged Q-T interval on ECG (Acute) Hypomagnesemia (Acute) Breath shortness (Acute) Hypokalemia (Acute) Chest pain (Acute) Low back pain (Acute) Dyspnea (Acute) managed with symacort Palpitations (Acute) Muscle cramps (Acute) Type 2 diabetes mellitus with diabetic neuropathy (Chronic) Erectile dysfunction (Acute) Situational mixed anxiety and depressive disorder (Acute) Hypokalemia (Acute) Asthma (Acute) Anxiety (Chronic) Coronary artery disease (Chronic) Obesity (BMI 30-39.9) (Acute 07/11/17) Gastroesophageal reflux disease without esophagitis (Acute 07/11/17) Sleep apnea with use of continuous positive airway pressure (CPAP) (Acute 10/19/15) He uses his CPAP Hyperlipidemia (Acute 05/14/07) Essential hypertension (Acute) Medical History History of asthma Non-STEMI (non-ST elevated myocardial infarction) (~04/19/19) Smoker (07/11/17) quit 2019 Surgical History H/O heart artery stent (~04/19/19) MARLA to distal RCA and proximal LAD Family History Mother , age 65 Diabetes Heart disease CHF Father , age 69 Cancer Lung cancer Sister No problems noted. Sister No problems noted. Sister No problems noted. Brother No problems noted. Brother No problems noted. Son No problems noted. Daughter No problems noted. Social History Smoking/Tobacco Use Status: Former Tobacco Use tobacco type: cigarettes Quit Date: 04/19/19 Tobacco: How many years used: 30 Quit status: quit date established Second Hand Exposure: Yes Smoking risk assessment performed?: Yes Alcohol Intake: never Drug use: Never Substance use type: does not use Adopted: No Caregiver/Support person: No Foster care: No Household members: none Housing: house Number of Children: 2 number of grandchildren: 1 Communication Needs: None Education Level: middle school Details: 8th grade Do you need help understanding health information?: Always current occupation: disabled Pets and animals: Yes Pets and animals: dog(s) and horse(s) Sexually active: No Do you think of yourself as: straight/heterosexual Current gender identity: female What is your relationship status?: never How often do you talk on the phone with friends or family?: decline to answer How often do you get together with friends or relatives?: decline to answer How often do you attend baptism or anabaptism services?: decline to answer Do you belong to any clubs or organized social groups?: decline to answer Panel score (0-1 are the most socially isolated patients): 0 Duration: > 90 minutes/day Frequency: daily Caryn/Mandaen: None Special caryn needs: No Seatbelt use: always Helmet use: No Drive intox or ride w/intox wagon driver: No Firearms in home: Yes Firearms unloaded and locked: Yes Do you feel safe at home: Yes Do you feel safe in your relationship?: Yes Victim of physical abuse: No Victim of emotional abuse: No Victim of sexual abuse: No Meds Allergies and Home Medications Allergies Allergy/AdvReac Type Severity Reaction Status Date / Time No Known Allergies Allergy Verified 12/25/23 09:03 Home Medications ?Medication ?Instructions ?Recorded ?Confirmed ?Type aspirin 81 mg tablet,delayed 81 mg PO DAILY 08/24/15 12/25/23 History release (Aspir-) potassium gluconate 595 mg (99 mg) 99 mg (0.1664 x 595 mg (99 mg)) PO 05/02/18 12/25/23 Rx tablet DAILY #90 tabs CPAP machine miscellaneous 06/24/19 10/12/23 History blood-glucose meter (OneTouch #1 ea 09/10/19 12/25/23 Rx Ultra2 Meter kit) multivitamin-ferrous 1 tab PO DAILY 07/09/20 12/25/23 History fumarate-folic acid 18 mg-400 mcg tablet (Centrum Complete) magnesium oxide 500 mg PO DAILY 07/13/21 12/25/23 History blood sugar diagnostic #200 ea 05/09/22 12/25/23 Rx lancets 30 gauge #200 ea 05/09/22 12/25/23 Rx empagliflozin 25 mg tablet 25 mg PO DAILY #90 tabs 01/12/23 12/25/23 Rx (Jardiance) pantoprazole 40 mg tablet,delayed 40 mg PO DAILY #90 tabs 01/12/23 12/25/23 Rx release sildenafil 25 mg tablet (Viagra) 25 mg PO DAILY PRN sexual activity 01/12/23 12/25/23 Rx #10 tabs albuterol sulfate 90 mcg/actuation 90 mcg inhalation Q6H PRN 04/11/23 12/25/23 Rx breath activated powder shortness of breath or wheezing #1 inhaler,sensor ea glipizide 5 mg tablet 5 mg PO BID #180 tabs 04/11/23 12/25/23 Rx atorvastatin 80 mg tablet 80 mg PO DAILY #90 tabs 07/04/23 12/25/23 Rx fluoxetine 20 mg capsule 40 mg (2 x 20 mg) PO DAILY #90 caps 07/04/23 12/25/23 Rx hydrochlorothiazide 25 mg tablet 25 mg PO DAILY #90 tabs 07/04/23 12/25/23 Rx losartan 50 mg tablet 50 mg PO DAILY #90 tabs 07/04/23 12/25/23 Rx metformin 1,000 mg tablet 1,000 mg PO BID #180 tabs 07/04/23 12/25/23 Rx albuterol sulfate 90 mcg/actuation 2 puff inhalation Q6H PRN ##1 09/14/23 12/25/23 Rx aerosol inhaler (Proventil HFA) metoprolol succinate 25 mg 25 mg PO DAILY #90 tabs 09/21/23 12/25/23 Rx tablet,extended release 24 hr cyclobenzaprine 5 mg tablet 5 mg PO TID PRN back pain #30 tabs 10/12/23 12/25/23 Rx nitroglycerin 0.4 mg sublingual 0.4 mg sublingual Q5M PRN chest 10/12/23 12/25/23 Rx tablet pain #25 tabs fluticasone furoate 100 1 inh inhalation DAILY #30 ea 11/06/23 12/25/23 Rx mcg/actuation blister powder for inhalation (Arnuity Ellipta) Exam Narrative Exam Narrative: well appearing gentleman laying in bed in no acute distress, AOx4, heart RRR, tenderness to palpation of the right sternal boarder, lungs CTAB, abdomen soft, non-tender, non-distended Results Labs 12/25/23 09:14 12/25/23 09:14 Labs: Laboratory Results - last 24 hr 12/25/23 12/25/23 09:14 12:27 WBC 8.54 RBC 5.81 H Hgb 16.0 Hct 46.9 MCV 81 MCH 27.5 MCHC 34.1 RDW 14.2 H Plt Count 234 MPV 9.8 Immature Gran % 0.4 Neutrophils % 75.1 Lymphocytes % 15.2 Monocytes % 6.9 Eosinophils % 2.0 Basophils % 0.4 Nucleated RBC % 0.0 Absolute Neutrophils 6.42 Absolute Lymphocytes 1.30 Absolute Monocytes 0.59 Absolute Eosinophils 0.17 Absolute Basophils 0.03 Sodium 139 Potassium 2.6 L* Chloride 97 L Carbon Dioxide 31.6 Anion Gap 10.4 BUN 18 Creatinine 1.2 Est GFR (CKD-EPI 2020) 70.98 Glucose 245 H Calcium 9.4 Magnesium 1.4 L Total Bilirubin 0.92 AST 38 H ALT 45 Alkaline Phosphatase 123 H Troponin I < 50 < 50 NT-Pro-B Natriuret Pep 16 Total Protein 7.5 Albumin 3.9 Last Vital Signs Temp 97.3 F L 12/25/23 12:22 Pulse 58 L 12/25/23 12:22 Resp 16 12/25/23 12:22 BP 134/69 12/25/23 12:22 Pulse Ox 97 12/25/23 12:22 Time Spent Time spent with Patient: >75 minutes Time was spent: preparing to see the patient(eg.review tests), obtaining and/or reviewing separately otained hiistory, ordering medications,tests, procedures, referring, communicating with other health healthcare network pricing consultant, indepentently interpreting results, counseling the patient and care coordination
--- NOTE | 2023-12-25 14:49 | W.PC.ACHO ---
Registration Status: Primary Language: Preferred Language: ED Information & Data Chief Complaint Chest Pain 12/25/23 09:52 Triage Note pt started with CP and SOB 12/25/23 09:00 at rest this morning. Pt states that he had a heart attack 5 years ago. no N/V. intermittent dizziness Medical / Surgical History History of asthma Non-STEMI (non-ST elevated myocardial infarction) (~04/19/19) Smoker (07/11/17) (Last Reviewed 12/25/23 @ 11:06 by Elizabeth Adam MD) H/O heart artery stent (~04/19/19) Most Recent Vital Signs Temperature 36.0 C L 12/25/23 13:09 Temperature Source Skin 12/25/23 13:09 Pulse 65 12/25/23 13:31 Pulse 70 12/25/23 13:31 Respiratory Rate 21 12/25/23 13:31 Respiratory Effort Normal, Non-Labored 12/25/23 09:30 Respiratory Depth Normal 12/25/23 09:30 Respiratory Pattern Normal 12/25/23 09:30 Blood Pressure 108/39 L 12/25/23 13:31 Blood Pressure Mean 66 12/25/23 13:31 Blood Pressure Position Sitting 12/25/23 09:00 Pulse Oximetry 97 12/25/23 13:09 Oxygen Delivery Method Room Air 12/25/23 13:09 Oxygen Flow Rate 0 12/25/23 13:09 Allergies No Known Allergies Allergy (Verified 12/25/23 09:03) Precautions Isolation Standard precaution 12/25/23 09:02 IV IV Catheter Type [Right Saline Lock Antecubital] IV Catheter Gauge [Right 18 Antecubital] Diet Orders Category Date Time Status Diabetes Consistent CHO/Heart Healthy [DIET] Nutrition 12/25/23 Dinner Active Diagnostics 12/25/23 12/25/23 Range/Units 12:27 09:14 WBC 8.54 (4.4-10.8) 10^3/uL RBC 5.81 H (4.36-5.78) 10^6/uL Hgb 16.0 (13.5-17.5) g/dL Hct 46.9 (40.0-50.0) % MCV 81 (80-95) fL MCH 27.5 (27.0-33.0) pg MCHC 34.1 (32.0-36.0) % RDW 14.2 H (11.8-14.1) % Plt Count 234 (130-400) 10^3/uL MPV 9.8 (8.0-11.0) fL Immature Gran % 0.4 % Neutrophils % 75.1 % Lymphocytes % 15.2 % Monocytes % 6.9 % Eosinophils % 2.0 % Basophils % 0.4 % Nucleated RBC % 0.0 (0.0-0.3) % Absolute Neutrophils 6.42 (1.2-6.7) 10^3/uL Absolute Lymphocytes 1.30 (1.2-3.4) 10^3/uL Absolute Monocytes 0.59 (0.1-0.8) 10^3/uL Absolute Eosinophils 0.17 (0.0-0.7) 10^3/uL Absolute Basophils 0.03 (0.0-0.2) 10^3/uL Sodium 139 (136-145) mmol/L Potassium 2.6 L* (3.5-5.1) mmol/L Chloride 97 L (98-107) mmol/L Carbon Dioxide 31.6 (21.0-32.0) mmol/L Anion Gap 10.4 (3-11) mmol/L BUN 18 (7-18) mg/dL Creatinine 1.2 (0.70-1.30) mg/dL Est GFR (CKD-EPI 2020) 70.98 (mL/min/1.73m2) Glucose 245 H (74-106) mg/dL Calcium 9.4 (8.5-10.1) mg/dL Magnesium 1.4 L (1.8-2.4) mg/dL Total Bilirubin 0.92 (0.2-1.0) mg/dL AST 38 H (15-37) U/L ALT 45 (16-63) U/L Alkaline Phosphatase 123 H (46-116) U/L Troponin I < 50 < 50 (< or =60) ng/L NT-Pro-B Natriuret Pep 16 (<300) pg/mL Total Protein 7.5 (6.4-8.2) g/dL Albumin 3.9 (3.4-5.0) g/dL Intake and Output - 24 Hour Total 12/25/23 08:57 thru 12/25/23 13:03 Intake Total 319 Balance 319 Weight 102.058 kg Intake: IV 319 Falls Risk Assessment History of Falls No History 12/25/23 10:46 Contributing Factors No Factors 12/25/23 10:46 Ambulatory Aids Independent 12/25/23 10:46 Tubes/Lines None 12/25/23 10:46 Gait Evaluation No gait disturbance 12/25/23 10:46 Cognition No cognitive impairment 12/25/23 10:46 Fall Total Score 0 12/25/23 10:46 Level of Risk Standard/Low Risk 12/25/23 10:46 Problems (Last Reviewed 12/25/23 @ 11:06 by Elizabeth Adam MD) Stable angina (Acute) Prolonged Q-T interval on ECG (Acute) Hypomagnesemia (Acute) Breath shortness (Acute) Hypokalemia (Acute) Chest pain (Acute) Type 2 diabetes mellitus with diabetic neuropathy (Chronic) Coronary artery disease (Chronic) Gastroesophageal reflux disease without esophagitis (Acute 07/11/17) Sleep apnea with use of continuous positive airway pressure (CPAP) (Acute 10/19/15) Hyperlipidemia (Acute 05/14/07) Essential hypertension (Acute) v v v v v v v v v Sending and/or Receiving Nurses: Please use comment section below to note any information pertinent to the patient hand-off not included above. Information / Comments: Received pt from ED via wheelchair. Ambulated from wheelchair to bed, steady on feet. Tele monitor applied. Report received from: LADONNA Cabrera
[2023-12-25] MEDS: glipiZIDE 5 MG TAB PO (17:11)
[2023-12-25] MEDS: Insulin Aspart 300 UNITS/3 ML PEN SC (17:11)
[2023-12-25] MEDS: Normal Saline Flush 10 ML SYR IVP (19:54)
[2023-12-25] MEDS: Mometasone 220 MCG 14 DOSE INHALER 1 PUFF IH (20:40)
--- NOTE | 2023-12-26 | DI.US_ITS ---
APPROVED REPORT EXAM: Comprehensive 2D, Doppler, and color-flow Echocardiogram Patient Location: In-Patient Room/Bed: [address] Buffer: Shirley Spears RDCS (AE) Indications: Chest pain, H/X CAD, SOB Limited follow up exam Other Information Study Quality: Fair. Technically limited study due to body habitus. Conclusion Normal left ventricular wall thickness and chamber size. Ejection fraction is 55%. No segmental wal l motion abnormalities are appreciated Normal right ventricular size and function Both atria are normal in size There is no interval change compared to the echocardiogram from October 2023 Wall motion Left Ventricle The left ventricle is normal size. The left ventricular systolic function is normal. The left ventric ular ejection fraction is within the normal range. There is normal left ventricular wall thickness. T here is normal LV segmental wall motion. LVEF is 55%. 2D Dimensions IVSD d PLAX 0.86 cm M: 0.6-1.2 LVPW d PLAX 0.94 cm M: 0.6 - 1.2 LVID d PLAX 4.83 cm M: 4.2 - 5.8 LVDs 3.39 cm M: 2.5 - 4.0 LV EF Teichholz 56.8 % FS 29.78 % LV EDV (Teich) 109.3 mL LV ESV (Teich) 47.2 mL Auto EF LV EDV A4C 136.2 mL LV EDV A2C 98.6 mL LV EDV BP 115.8 mL LV ESV A4C 61.2 mL LV ESV A2C 44.5 mL LV ESV BP 52.5 mL LVEF(%) A4C 55.0 % LVEF(%) A2C 54.9 % LVEF(%) BP 54.6 % LV SV A4C 74.9 ml LV SV A2C 54.2 ml LV SV BP 63.2 ml LV CO A4C 5.1 L/min LV CO A2C 3.4 L/min LV CO BP 4.3 L/min HR A4C 68.57 BPM HR A2C 63.25 BPM LV EDV Index (BP)
[2023-12-26 03:39] VITALS: BP 134/73; PULSE 63; RESP 18; TEMP 36; O2SAT 97
[2023-12-26 06:53] LABS: HCT 44.7 % (40.0-50.0); HGB 15.4 g/dL (13.5-17.5); MCH 27.6 pg (27.0-33.0); MCHC 34.5 % (32.0-36.0); MCV 80 fL (80-95); MPV 9.6 fL (8.0-11.0); Platelet Count 188 10^3/uL (130-400); RBC 5.58 10^6/uL (4.36-5.78); RDW 13.9 % (11.8-14.1); RDW-SD 40.4 fL; WBC 6.84 10^3/uL (4.4-10.8)
[2023-12-26 07:05] LABS: Anion Gap 8.3 mmol/L (3-11); BUN 15 mg/dL (7-18); CO2 30.7 mmol/L (21.0-32.0); CREATININE 0.9 mg/dL (0.70-1.30); Calcium 8.8 mg/dL (8.5-10.1); Chloride 99 mmol/L (98-107); Estimated GFR 100.24 (mL/min/1.73m2); Glucose 141 mg/dL (74-106); Magnesium 1.7 mg/dL (1.8-2.4); Sodium 138 mmol/L (136-145)
[2023-12-26 07:08] LABS: Potassium 2.6 mmol/L (3.5-5.1)
[2023-12-26] MEDS: glipiZIDE 5 MG TAB PO ×2 (07:31→17:07)
[2023-12-26] MEDS: Pantoprazole 40 MG TABCR PO (07:32)
[2023-12-26 07:48] VITALS: BP 145/80; PULSE 61; RESP 19; TEMP 36.7; O2SAT 97
[2023-12-26] MEDS: hydroCHLOROthiazide 25 MG TAB PO (08:35)
[2023-12-26] MEDS: Atorvastatin 40 MG TAB 80 MG PO (08:36)
[2023-12-26] MEDS: Losartan 50 MG TAB PO (08:36)
[2023-12-26] MEDS: FLUoxetine 20 MG CAP 40 MG PO (08:36)
[2023-12-26] MEDS: Aspirin E.C. 81 MG TABEC PO (08:36)
[2023-12-26] MEDS: Magnesium Oxide 400 MG TAB PO (08:36)
[2023-12-26] MEDS: POTASSIUM CHLORIDE 10 MEQ/100 ML BAG 100 MEQ IVINF ×4 (08:37→15:12)
[2023-12-26] MEDS: Empaglifozin 25 MG TAB PO (08:37)
[2023-12-26] MEDS: Multivitamin TAB 1 TAB PO (08:37)
[2023-12-26] MEDS: Normal Saline Flush 10 ML SYR IVP ×3 (08:37→21:46)
[2023-12-26] MEDS: Insulin Aspart 300 UNITS/3 ML PEN SC ×3 (08:38→17:08)
[2023-12-26 11:07] VITALS: BP 138/77; PULSE 61; RESP 17; TEMP 36.4; O2SAT 99
--- NOTE | 2023-12-26 11:24 | INITIAL_ITS ---
Date of service: 12/26/23 Time of Service: 11:25 Care Management Initial Assmt Initial Assessment Reason for Hospitalization: Stable angina, CAD, hypokalemia Functional Status/Living Situation Patient Presentation: Tan was lying in bed when CM met with him. He stated that he is doing well, and is waiting to see MD, who will be informing him of the echo results. His sister and her boyfriend were in the room visiting. Tan stated that his neice, Felisha, works at [facility] [facility] and he would like her to be present for the results, as she helps him to understand medical terminology. Tan stated that per MD, after his echo is read, he may be ready for discharge with outpatient follow up for a stress test. He is agreeable to this plan. CM will continue to follow. Town of Residence: Lives in [place]; address in [place] is a home that he owns and receives mail at. 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 Medications Medication Management: No Issues/Barriers identified Advance Directives Advance Directives: Do you have an Advance Directive: N 08/24/15 15:55 AD On File at [facility]: N 08/24/15 15:55 Date Asked 12/25/23 12/25/23 09:18 AD Date Reviewed COLST On File at [facility] COLST Date Scanned Code Status Resuscitation Status Full Code Insurance Coverage/Financial Issues Insurance: [facility] Care Team Visit Care Team Role Provider Type Gladis Azul NP Primary Care Provider NURSE PRACTITIONER Elizabeth Adam MD Emergency Provider [facility] STAFF PHYSICIAN Yobany Minaya MD Admit Provider [facility] STAFF PHYSICIAN Attending Provider Discharge Potential Discharge Needs: PCP F/U Appt Anticipated Barriers to Discharge: None Identified Patient/Family Education Needs: Review discharge instructions, discuss Ask Me Three Transportation: Private vehicle Plan: Anticipate Tan will return home once medically cleared. He will be driven home via private vehicle by family. He will follow up with his PCP and discharge plan of care. CM will continue to follow. PFSH All Active Problems (Updated 12/25/23 @ 14:31 by EDDIE DOS SANTOS) Stable angina (Acute) Prolonged Q-T interval on ECG (Acute) Hypomagnesemia (Acute) Breath shortness (Acute) Hypokalemia (Acute) Chest pain (Acute) Low back pain (Acute) Dyspnea (Acute) managed with symacort Palpitations (Acute) Muscle cramps (Acute) Type 2 diabetes mellitus with diabetic neuropathy (Chronic) Erectile dysfunction (Acute) Situational mixed anxiety and depressive disorder (Acute) Hypokalemia (Acute) Asthma (Acute) Anxiety (Chronic) Coronary artery disease (Chronic) Obesity (BMI 30-39.9) (Acute 07/11/17) Gastroesophageal reflux disease without esophagitis (Acute 07/11/17) Sleep apnea with use of continuous positive airway pressure (CPAP) (Acute 10/19/15) He uses his CPAP Hyperlipidemia (Acute 05/14/07) Essential hypertension (Acute) Medical History History of asthma Non-STEMI (non-ST elevated myocardial infarction) (~04/19/19) Smoker (07/11/17) quit 2018 Surgical History H/O heart artery stent (~04/19/19) MARLA to distal RCA and proximal LAD Family History Mother , age 65 Diabetes Heart disease CHF Father , age 69 Cancer Lung cancer Sister No problems noted. Sister No problems noted. Sister No problems noted. Brother No problems noted. Brother No problems noted. Son No problems noted. Daughter No problems noted. Social History Smoking/Tobacco Use Status: Former Tobacco Use tobacco type: cigarettes Quit Date: 04/19/19 Tobacco: How many years used: 30 Quit status: quit date established Second Hand Exposure: Yes Smoking risk assessment performed?: Yes Alcohol Intake: never Drug use: Never Substance use type: does not use Adopted: No Caregiver/Support person: No Foster care: No Household members: none Housing: house Number of Children: 2 number of grandchildren: 1 Communication Needs: None Education Level: middle school Details: 8th grade Do you need help understanding health information?: Always current occupation: disabled Pets and animals: Yes Pets and animals: dog(s) and horse(s) Sexually active: No Do you think of yourself as: straight/heterosexual Current gender identity: female What is your relationship status?: never How often do you talk on the phone with friends or family?: decline to answer How often do you get together with friends or relatives?: decline to answer How often do you attend temple or yarsani services?: decline to answer Do you belong to any clubs or organized social groups?: decline to answer Panel score (0-1 are the most socially isolated patients): 0 Duration: > 90 minutes/day Frequency: daily Caryn/Gnosticism: None Special caryn needs: No Seatbelt use: always Helmet use: No Drive intox or ride w/intox front load trash truck driver: No Firearms in home: Yes Firearms unloaded and locked: Yes Do you feel safe at home: Yes Do you feel safe in your relationship?: Yes Victim of physical abuse: No Victim of emotional abuse: No Victim of sexual abuse: No SDOH(Care Management) Screening Will the Patient Participate in the Screening?: Yes Do you worry about having a steady place to live?: no Problems where you live: no known problems In the past 12 months, have you had to go without electric, gas, oil or water in your home?: no Have you or anyone in your house had to go without enough food to eat?: no Has lack of transportation kept you from medical appointments or from doing things needed for daily living?: no Has anyone in your support network made you feel unsafe for any reason?: no
--- NOTE | 2023-12-26 12:13 | PHA.REVIEW2 ---
Pharmacy Admission Review Admission Clinical Review Admission Pharmacy Review: Stable angina (Acute) Prolonged Q-T interval on ECG (Acute) Hypomagnesemia (Acute) Breath shortness (Acute) Hypokalemia (Acute) Chest pain (Acute) Gastroesophageal reflux disease without esophagitis (Acute 07/11/17) Sleep apnea with use of continuous positive airway pressure (CPAP) (Acute 10/19/15) Hyperlipidemia (Acute 05/14/07) Essential hypertension (Acute) No Known Allergies Allergy (Verified 12/25/23 09:03) Resuscitation Status Full Code Height 5 ft 6 in Weight 102.058 kg Comments Comments/Follow Ups: Stress test scheduled for 12/27, orders put in. Per morning meeting, may try to have this done as outpatient. Pharmacy Admission Review Renal Dosing Renal Dosing: BUN 15 mg/dL (-) 12/26/23 06:24 Creatinine 0.9 mg/dL (0.70-1.30) 12/26/23 06:24 Medications needing adjustments: Reviewed (CrCl 102.54 mL/min) List of meds needing interventions: Current medications are okay Anticoagulation Anticoagulation: Hgb 15.4 g/dL (13.5-17.5) 12/26/23 06:24 Hct 44.7 % (40.0-50.0) 12/26/23 06:24 Plt Count 188 10^3/uL (130-400) 12/26/23 06:24 Creatinine 0.9 mg/dL (0.70-1.30) 12/26/23 06:24 DVT Prophylaxis: Intervened (None at this time - reached out to verify with provider, per provider patient is mobile and does not need any) Relevant Labs Relevant Labs: Sodium 138 mmol/L (136-145) 12/26/23 06:24 Potassium 2.6 mmol/L (3.5-5.1) L* 12/26/23 06:24 Chloride 99 mmol/L (98-107) 12/26/23 06:24 Magnesium 1.7 mg/dL (1.8-2.4) L 12/26/23 06:24 Electrolytes, C-Reactive P, ESR: Reviewed (K remains at 2.6 - repleting with repeat lab pending, Mg increased from 1.4, ) DM Control DM Control: Glucose 141 mg/dL (74-106) H 12/26/23 06:24 Finger Stick Blood Glucose 152 1122 Finger Stick Blood Glucose 152 1122 Finger Stick Blood Glucose 166 0838 Finger Stick Blood Glucose 166 0751 Finger Stick Blood Glucose 166 0751 DM Control: Reviewed Insulin Dosing, Diabetic Medication: Has order for SS insulin and glipizide, home metformin is on hold Cardiac Review Cardiac Review: Troponin I < 50 ng/L (< or =60) 12/25/23 12:27 NT-Pro-B Natriuret Pep 16 pg/mL (<300) 12/25/23 09:14 BP, HR, EF%: Reviewed (BP and HR WNL) QTc Review QTc: Reviewed (556 from 12/24 - per H+P possibly due to hypokalemia) IV to PO Switch IV Medications: Reviewed Home Meds Home Med List reviewed: Reviewed Relevent Home Meds Not ordered & why?: metformin (on hold), Aimovig (not taking per home med list) and Nurtec (PRN) Current Meds Current Medication Order Review: Reviewed Comments Comments/Follow Ups: Stress test scheduled for 12/27, orders put in. Per morning meeting, may try to have this done as outpatient.
[2023-12-26 13:47] LABS: Anion Gap 8.4 mmol/L (3-11); BUN 15 mg/dL (7-18); CO2 30.6 mmol/L (21.0-32.0); CREATININE 1.1 mg/dL (0.70-1.30); Calcium 8.8 mg/dL (8.5-10.1); Chloride 98 mmol/L (98-107); Estimated GFR 78.79 (mL/min/1.73m2); Glucose 174 mg/dL (74-106); Sodium 137 mmol/L (136-145)
--- NOTE | 2023-12-26 14:04 | W.NUTRFU ---
Date of service: 12/26/23 Time of Service: 13:15 Nutrition Note NOTE: Tan was laying down in bed on visit - very pleasant. Admitted for stable angina, hypomagnesemia (1.7 today) and hypokalemia (3.0 today). PMH significant for DMII with neuropathy, anxiety/depression, GERD, Obesity, HLD HTN, GUDELIA. No current insulin use - pt on jardiance, Glipizide and Metformin at home. Has lack of dentition and he is fine with requesting certain foods modified for ease when he orders his own meals here. A1c was 8.5% this last October. FPG 141 this morning, 245 yesterday. Fingerstick at lunch today was 152 and given 1 unit insulin. Ordered for Heart healthy and CHO consistent diet with normal consistencies. Pt does not regularly check his glucose at home. States he is trying to eat less take out/convenience food and make more food at home. Encouraged pt to engage in outpt support for menu planning as he could not give me a lot of detail about his goal for carb intake and seemed a little ignorant of other dietary factors he would benefit from focusing on. Ate 100% of lunch as made a comment that it wasn't enough - could have eaten double what he received. Would recommend considering addition of GLP-1 to help with weight loss/curb appetite and get A1C closer to target. will monitor labs, weight, and continue to offer education. 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 Time Spent in Nutritional Counseling and Treatment: 10 minutes
[2023-12-26 15:08] VITALS: BP 139/75; PULSE 68; RESP 17; TEMP 36; O2SAT 98
--- NOTE | 2023-12-26 17:22 | CHAPLAIN ---
Tan was resting in bed when I visited. He said he's feeling okay, and waiting for test results. He's from [place]. He said family members and friends are checking in by phone often so he's not feeling alone.
[2023-12-26 19:25] VITALS: BP 149/78; PULSE 66; RESP 18; TEMP 36.2; O2SAT 98
[2023-12-26] MEDS: Gabapentin 100 MG CAP PO (21:35)
[2023-12-26] MEDS: Mometasone 220 MCG 14 DOSE INHALER 1 PUFF IH (21:36)
[2023-12-26 22:44] VITALS: BP 144/79; PULSE 62; RESP 18; TEMP 36.3; O2SAT 96
[2023-12-27 03:52] VITALS: BP 144/79; PULSE 61; RESP 18; TEMP 36.4; O2SAT 95
[2023-12-27 07:25] VITALS: BP 144/104; BP 144/98; PULSE 63; TEMP 35.2; O2SAT 99
--- NOTE | 2023-12-27 07:25 | PGE_ITS ---
Date of Service Date of service: 12/26/23 Time of Service: 18:00 Assessment and Plan Assessment and plan (1) Stable angina: Status: Acute Assessment and plan: -patient with history of CAD s/p 3x stents in 2019, NIDDM, HTN, HLD presented with intermentent SOB and sudden onset chest pain and worsening SOB this AM that resolved on its own -EKG without findings concerning for acute IA -2x negative troponins -however, given patients fransico pain this AM, and significant medical history, decision was made for patient to be admitted for planned Nuclear Stress test on -will hold betablocker for 48hrs prior to stress test -continue daily 81mg ASA -will continue all other medications as noted below (2) Prolonged Q-T interval on ECG: Status: Acute Assessment and plan: -QT 494 though patient is not on any prolonging medications -likely due to hypokalemia as noted below (3) Hypokalemia: Status: Acute Assessment and plan: -K 2.6 in ED -s/p 10mEqIV K and 2g Mg -K 2.6 AM 12/25, ordered additional 40mEq IV -K 3.0 PM 12/25 after only 20 of 40mEq given -will f.u AM BMP (4) Type 2 diabetes mellitus with diabetic neuropathy: Status: Chronic Assessment and plan: -continue home gabapentin -holding home glipizide and metformin during hospitalization -SSI, CCD (5) Coronary artery disease: Status: Chronic Assessment and plan: -as noted above -holding home metoprolol for 48hr prior to stress test Qualifiers: Coronary Disease-Associated Artery/Lesion type: [place] artery [place] vs. transplanted heart: [place] heart Associated angina: with unspecified form of angina Qualified Code(s): I25.119 - Atherosclerotic heart disease of [place] coronary artery with unspecified angina pectoris (6) Gastroesophageal reflux disease without esophagitis: Status: Acute Assessment and plan: -continue home protonix (7) Sleep apnea with use of continuous positive airway pressure (CPAP): Status: Acute Assessment and plan: -CPAP HS on home settings (8) Hyperlipidemia: Status: Acute Assessment and plan: -continue 80mg lipitor HS Qualifiers: Hyperlipidemia type: mixed hyperlipidemia Qualified Code(s): E78.2 - Mixed hyperlipidemia (9) Essential hypertension: Status: Acute Assessment and plan: -continue home losartan and HCTZ Subjective Subjective Interval history since last seen: Patient states that he is doing well and understands that we are continuing to monitor his K levels. Exam Narrative Exam Narrative: well appearing gentleman laying in bed in no acute distress, AOx4, heart RRR, tenderness to palpation of the right sternal boarder, lungs CTAB, abdomen soft, non-tender, non-distended Objective Last Vital Signs Temp 97.5 F L 12/27/23 03:52 Pulse 61 12/27/23 03:52 Resp 18 12/27/23 03:52 BP 144/79 H 12/27/23 03:52 Pulse Ox 95 12/27/23 03:52 Laboratory Results - last 24 hr 12/26/23 13:20 Sodium 137 Potassium 3.0 L Chloride 98 Carbon Dioxide 30.6 Anion Gap 8.4 BUN 15 Creatinine 1.1 Est GFR (CKD-EPI 2020) 78.79 Glucose 174 H Calcium 8.8 Time Spent with Patient Time Spent with Patient: >50 minutes Time was spent: preparing to see the patient(eg.review tests), obtaining and/or reviewing separately otained hiistory, ordering medications,tests, procedures, referring, communicating with other health medication care manager, indepentently interpreting results, counseling the patient and care coordination
--- NOTE | 2023-12-27 07:54 | NUR.NOTE ---
Nursing Note: Pt c/o pressure in mid epigastric area, non radiating, refusing to take nitroglycerin at this time, pt educated on medication which he denies ever have had to take it at home. pt sitting upright in chair eating breakfast, stated has only been feeling tis pressure for a few minutes, states it feels like indigestion. B/P 144/100 HR 68.
[2023-12-27] MEDS: Insulin Aspart 300 UNITS/3 ML PEN SC (08:48)
[2023-12-27] MEDS: glipiZIDE 5 MG TAB PO (08:48)
[2023-12-27] MEDS: Normal Saline Flush 10 ML SYR IVP (08:48)
[2023-12-27 08:49] LABS: Anion Gap 12.5 mmol/L (3-11); BUN 14 mg/dL (7-18); CO2 24.5 mmol/L (21.0-32.0); CREATININE 0.9 mg/dL (0.70-1.30); Calcium 9.2 mg/dL (8.5-10.1); Chloride 98 mmol/L (98-107); Estimated GFR 100.24 (mL/min/1.73m2); Glucose 232 mg/dL (74-106); Potassium 3.4 mmol/L (3.5-5.1); Sodium 135 mmol/L (136-145)
[2023-12-27] MEDS: Magnesium Oxide 400 MG TAB PO (08:49)
[2023-12-27] MEDS: FLUoxetine 20 MG CAP 40 MG PO (08:49)
[2023-12-27] MEDS: Aspirin E.C. 81 MG TABEC PO (08:49)
[2023-12-27] MEDS: hydroCHLOROthiazide 25 MG TAB PO (08:49)
[2023-12-27] MEDS: Atorvastatin 40 MG TAB 80 MG PO (08:49)
[2023-12-27] MEDS: Losartan 50 MG TAB PO (08:49)
[2023-12-27] MEDS: Empaglifozin 25 MG TAB PO (08:49)
[2023-12-27] MEDS: Multivitamin TAB 1 TAB PO (08:49)
[2023-12-27] MEDS: Pantoprazole 40 MG TABCR PO (08:50)
--- NOTE | 2023-12-27 09:19 | PDOC.CMPRO ---
Date of service: 12/27/23 Time of Service: 09:19 Care Management Progress Note Discharge Potential Discharge Needs: Imaging/labs (needs stress test) and PCP F/U Appt Anticipated Barriers to Discharge: Treatment delay Patient/Family Education Needs: Review discharge instructions, discuss Ask Me Three Transportation: Private vehicle Plan: Anticipate Bill will return home once medically cleared. He will be driven home via private vehicle by family. He will follow up with his PCP and discharge plan of care. CM will continue to follow. SDOH(Care Management) Screening Will the Patient Participate in the Screening?: Yes Do you worry about having a steady place to live?: no Problems where you live: no known problems In the past 12 months, have you had to go without electric, gas, oil or water in your home?: no Have you or anyone in your house had to go without enough food to eat?: no Has lack of transportation kept you from medical appointments or from doing things needed for daily living?: no Has anyone in your support network made you feel unsafe for any reason?: no
--- NOTE | 2023-12-27 10:00 | RT.EKG_ITS ---
APPROVED REPORT Exam: Resting ECG Reason for Exam: long QT Patient Location: I HR:74 bpm ECG Measurements Heart Rate 74 AXIS KY 206 P 31 QRSd 93 QRS -17 QT 381 T 8 QTc 423 Conclusion Sinus rhythm...normal P axis, V-rate 50- 99 Borderline prolonged KY interval...KY >202, V-rate 50- 90 Inferior infarct, old...Q >35mS, II III aVF
--- NOTE | 2023-12-27 10:55 | DSE_ITS ---
Date of service: 12/27/23 Time of Service: 10:55 DS: Diagnosis Discharge Diagnosis (1) Stable angina: Status: Acute (2) Prolonged Q-T interval on ECG: Status: Acute (3) Hypokalemia: Status: Acute (4) Type 2 diabetes mellitus with diabetic neuropathy: Status: Chronic Asessment and Plan: -continue home regimen (5) Coronary artery disease: Status: Chronic Asessment and Plan: -continue home meds except as noted below (hold metoprolol until after stress test on 12/28/2023) (6) Gastroesophageal reflux disease without esophagitis: Status: Acute (7) Sleep apnea with use of continuous positive airway pressure (CPAP): Status: Acute (8) Hyperlipidemia: Status: Acute (9) Essential hypertension: Status: Acute Discharge Plan Disposition Patient Disposition: Home Condition: Good Discharge Details Reason For Visit: Stable Angina, CAD Admit Date/Time: 12/25/23 13:02 Admit Provider: Yobany Minaya Attending Provider: Yobany Minaya [facility] Course: Patient initially presented with worsening shortness of breath and an episode of chest pain prior to arrival to the emergency department that was ultimately determined to be stable angina. Patient had no signs of ST elevations, depressions or T wave inversions and had 2 negative troponins, additionally he did not have any further episodes of chest pain while admitted despite patient ambulating around the unit throughout the day. He did have a long QT which was attributed to hypokalemia which was repleted and ultimately improved. Additionally, patient was scheduled for a stress test for 11:30 AM on 12/28/2023 as an inpatient, however, after discussion with nuclear medicine, confirming that his insurance would cover transition of stress test as an outpatient, and improvement of patient's EKG and potassium, was determined that the patient to be stable for discharge and would be able to keep his outpatient stress test appointment for 12/28/2023 at 11:30 AM. Additionally, his metoprolol has been held during hospitalization in anticipation of nuclear stress test, and it was stated in his discharge instructions that he should not resume his metoprolol until the morning after his stress test. Home Meds and New Rx's Prescriptions: New aspirin 81 mg Tablet,Delayed Release (Dr/Ec) 81 mg PO DAILY Qty: 90 0RF Continued Jardiance 25 mg tablet 25 mg PO DAILY Qty: 90 3RF pantoprazole 40 mg tablet,delayed release (DR/EC) 40 mg PO DAILY Qty: 90 3RF sildenafil [Viagra] 25 mg tablet 25 mg PO DAILY PRN (Reason: sexual activity) Qty: 10 0RF Rx Instructions: administer 30 minutes to 4 hours before activity nitroglycerin 0.4 mg tablet, sublingual 0.4 mg SL Q5M PRN (Reason: chest pain) Qty: 25 3RF cyclobenzaprine 5 mg tablet 5 mg PO TID PRN (Reason: back pain) Qty: 30 0RF Rx Instructions: Take 1 tablet by mouth three times a day as needed for back pain Centrum Complete 18-400 mg-mcg tablet 1 tab PO DAILY albuterol sulfate 90 mcg/actuation aero powdr breath act w/sensor 90 mcg inhalation Q6H PRN (Reason: shortness of breath or wheezing) Qty: 1 3RF glipizide 5 mg tablet 5 mg PO BID Qty: 180 3RF fluoxetine 20 mg capsule 40 mg PO DAILY Qty: 90 4RF atorvastatin 80 mg tablet 80 mg PO DAILY Qty: 90 3RF metformin 1,000 mg tablet 1,000 mg PO BID Qty: 180 4RF hydrochlorothiazide 25 mg tablet 25 mg PO DAILY Qty: 90 4RF losartan 50 mg tablet 50 mg PO DAILY Qty: 90 3RF albuterol sulfate [Proventil HFA] 90 mcg/actuation HFA aerosol inhaler 2 puff Inhalation Q6H PRN Qty: 1 5RF Rx Instructions: spacer Arnuity Ellipta 100 mcg/actuation blister with device 1 inh inhalation DAILY Qty: 30 3RF magnesium oxide 500 mg tablet 500 mg PO DAILY Qty: 90 0RF potassium gluconate 595 mg (99 mg) tablet 99 mg PO DAILY Qty: 90 3RF Held metoprolol succinate 25 mg tablet extended release 24 hr 25 mg PO DAILY Qty: 90 6RF Hold Instructions: Resume on 12/29/23. Discontinued aspirin [Aspir-81] 81 MG tablet,delayed release (DR/EC) 81 mg PO DAILY No Action (DME) CPAP machine 0 .ROUTE .MEDSUPPLY (DME) blood sugar diagnostic Strip See Rx Instructions .ROUTE .MEDSUPPLY Qty: 200 3RF Rx Instructions: Check blood sugars twice a day (DME) lancets 30 gauge misc See Rx Instructions .Route Qty: 200 3RF Rx Instructions: Check blood sugar twice a day (DME) blood-glucose meter [OneTouch Ultra2 Meter] Kit See Rx Instructions .ROUTE .MEDSUPPLY Qty: 1 0RF Rx Instructions: Test once weekly Discharge Instructions Instructions: ECG and stress test Activity:: Activity as Tolerated Equipment/Supplies:: No Equipment Needed Diet:: As Tolerated Discharge Orders Discharge Orders: Discharge Order (Routine); Ordered 12/27/23 Ordered By: Yobany Minaya Other Ambulatory Orders: NM MPI rest & stress grp (Routine) Timeframe: 1 Day Facility: [facility] - Location: DIAGNOSTIC IMAGING Ordered By: Yobany Minaya DS: Summary Time Spent with Patient providing and/or coordinating discharge services: Greater than 30 minutes Status at Discharge Functional status at discharge: independent ambulation Overall status at discharge: patient is back to baseline Mental Status: mental status grossly normal Speech and Movement: speech and movement normal Mood: congruent mood Affect: normal affect Quality:SDOH Health Related Social Needs: No Data to Display Exam Narrative Exam Narrative: well appearing gentleman laying in bed in no acute distress, AOx4, heart RRR, tenderness to palpation of the right sternal boarder, lungs CTAB, abdomen soft, non-tender, non-distended Psych Mental Status: mental status grossly normal Speech and Movement: speech and movement normal Mood: congruent mood Affect: normal affect DS: Data Vitals/I&O Vitals and I&O: Vital Signs Temperature 95.4 F L 12/27/23 07:25 Temperature Source Tympanic 12/27/23 07:25 Pulse 63 12/27/23 07:25 Pulse Rhythm Regular 12/26/23 21:47 Pulse 70 12/25/23 13:31 Respiratory Rate 18 12/27/23 03:52 Respiratory Effort Normal, Non-Labored 12/26/23 21:47 Respiratory Depth Normal 12/26/23 21:47 Respiratory Pattern Normal 12/26/23 21:47 Blood Pressure 144/98 H 12/27/23 07:25 Blood Pressure Mean 66 12/25/23 13:31 Blood Pressure Position Sitting 12/25/23 09:00 Pulse Oximetry 99 12/27/23 07:25 Oxygen Delivery Method Room Air 12/27/23 07:25 Oxygen Flow Rate 0 12/27/23 07:25 Pain Level 0 12/27/23 07:25 Comment pt denies chest pain or shortness of breath. 12/26/23 22:44 Intake & Output 12/26/23 12/27/23 12/27/23 17:59 05:59 17:59 Intake Total 1000 / 1000 300 / 1300 Output Total 1250 / 1250 525 / 1775 Balance -250 / -250 -225 / -475 Intake: IV 400 / 400 Oral 600 / 600 300 / 900 Output: Urine 1250 / 1250 525 / 1775 Other: Urine Color Yellow Yellow Urine Appearance Clear Clear Comment urinal Stool Size Moderate Stool Characteristics Formed Voiding Methods Urinal Data Completed and Pending Labs on day of discharge: Labs from last 24 hours 12/27/23 12/26/23 08:30 13:20 Sodium 135 L 137 Potassium 3.4 L 3.0 L Chloride 98 98 Carbon Dioxide 24.5 30.6 Anion Gap 12.5 H 8.4 BUN 14 15 Creatinine 0.9 1.1 Est GFR (CKD-EPI 2020) 100.24 78.79 Glucose 232 H 174 H Calcium 9.2 8.8 PFSH All Active Problems (Updated 12/27/23 @ 10:50 by Yobany Minaya MD) Stable angina (Acute) Prolonged Q-T interval on ECG (Acute) Hypomagnesemia (Acute) Breath shortness (Acute) Hypokalemia (Acute) Chest pain (Acute) Low back pain (Acute) Dyspnea (Acute) managed with symacort Palpitations (Acute) Muscle cramps (Acute) Type 2 diabetes mellitus with diabetic neuropathy (Chronic) Erectile dysfunction (Acute) Situational mixed anxiety and depressive disorder (Acute) Hypokalemia (Acute) Asthma (Acute) Anxiety (Chronic) Coronary artery disease (Chronic) Obesity (BMI 30-39.9) (Acute 07/11/17) Gastroesophageal reflux disease without esophagitis (Acute 07/11/17) Sleep apnea with use of continuous positive airway pressure (CPAP) (Acute 10/19/15) He uses his CPAP Hyperlipidemia (Acute 05/14/07) Essential hypertension (Acute) Medical History History of asthma Non-STEMI (non-ST elevated myocardial infarction) (~04/19/19) Smoker (07/11/17) quit 2019 Surgical History H/O heart artery stent (~04/19/19) MARLA to distal RCA and proximal LAD Family History Mother , age 65 Diabetes Heart disease CHF Father , age 69 Cancer Lung cancer Sister No problems noted. Sister No problems noted. Sister No problems noted. Brother No problems noted. Brother No problems noted. Son No problems noted. Daughter No problems noted. Social History Smoking/Tobacco Use Status: Former Tobacco Use tobacco type: cigarettes Quit Date: 04/19/19 Tobacco: How many years used: 30 Quit status: quit date established Second Hand Exposure: Yes Smoking risk assessment performed?: Yes Alcohol Intake: never Drug use: Never Substance use type: does not use Adopted: No Caregiver/Support person: No Foster care: No Household members: none Housing: house Number of Children: 2 number of grandchildren: 1 Communication Needs: None Education Level: middle school Details: 8th grade Do you need help understanding health information?: Always current occupation: disabled Pets and animals: Yes Pets and animals: dog(s) and horse(s) Sexually active: No Do you think of yourself as: straight/heterosexual Current gender identity: female What is your relationship status?: never How often do you talk on the phone with friends or family?: decline to answer How often do you get together with friends or relatives?: decline to answer How often do you attend yazidi or amish services?: decline to answer Do you belong to any clubs or organized social groups?: decline to answer Panel score (0-1 are the most socially isolated patients): 0 Duration: > 90 minutes/day Frequency: daily Caryn/Roman Catholic: None Special caryn needs: No Seatbelt use: always Helmet use: No Drive intox or ride w/intox carry all driver: No Firearms in home: Yes Firearms unloaded and locked: Yes Do you feel safe at home: Yes Do you feel safe in your relationship?: Yes Victim of physical abuse: No Victim of emotional abuse: No Victim of sexual abuse: No Time Spent with Patient Time Spent with Patient: <45 minutes Time was spent: preparing to see the patient(eg.review tests), obtaining and/or reviewing separately otained hiistory, ordering medications,tests, procedures, referring, communicating with other health tree care foreman, indepentently interpreting results, counseling the patient and care coordination
[2023-12-27 11:00] VITALS: BP 120/85; PULSE 86; RESP 18; TEMP 35.9; O2SAT 100
--- NOTE | 2023-12-27 14:35 | CMDISCH_ITS ---
Date of service: 12/27/23 Time of Service: 14:35 LACE Index Scoring Tool Questions: Length of Stay (in days): 2 Was the patient admitted via the E.D.?: Yes Comorbidities: Previous M.I. and Diabetes w/o Complication E.D. Visits: 1 Answers: Total Score: 8 Risk of Readmission: Low Risk Care Management Discharge Plan Reason for Hospitalization: angina Discharge Plan: Tan will return home with no new services. He will be driven h ome via private vehicle by family. He will follow up with his PCP and discharge plan of care. Tan has an outpatient Stress test scheduled for tomorrow. Patient/Family Education Needs: Review discharge instructions, discuss Ask Me Three [facility] Health Related Social Needs: No Data to Display
== END 2023-12-27 12:47 | disposition home or self-care (01) | DRG 303 ==
LOC: ER 11:11 → MS 14:31
PROVIDERS: Admitting Provider Family Medicine; Emergency Provider Emergency Medicine; PCP Nurse Practitioner Family; Visit Provider Family Medicine
DX: I25.118 Atherosclerotic heart disease of native coronary artery with other forms of angina pectoris (principal); R94.31 Abnormal electrocardiogram [ECG] [EKG]; E87.6 Hypokalemia; E11.40 Type 2 diabetes mellitus with diabetic neuropathy, unspecified; Z79.84 Long term (current) use of oral hypoglycemic drugs; K21.9 Gastro-esophageal reflux disease without esophagitis; G47.30 Sleep apnea, unspecified; E78.2 Mixed hyperlipidemia; I10 Essential (primary) hypertension; Z95.5 Presence of coronary angioplasty implant and graft; M54.50 Low back pain, unspecified; E83.42 Hypomagnesemia; J45.909 Unspecified asthma, uncomplicated; I25.2 Old myocardial infarction; Z87.891 Personal history of nicotine dependence
CPT/HCPCS: 00123; 36410; 36415; 80048; 80053; 85027; 93005; 93308; 94640; 96365; 96366; 96368; 99285; 71045; 83735; 83880; 84484; 85025; 93010; 99223; 99233; 99238; J1815; J3475; J3480

== ENCOUNTER → 2023-12-28 01:29 | Outpatient (CLI) | payer MEDICAID, SELFPAY ==
--- NOTE | 2023-12-28 07:15 | DI.NM_ITS ---
APPROVED REPORT Exam: Exercise Treadmill Patient Location: Out-Patient Room/Bed: Stress Nurse: Ever Golden RN and Taylor Santacruz RN Ordering Provider:CHUCKY MARTINEZ, Contact Number: [phone] BMI: 36.15 Baseline Rhythm: Sinus Rhythm Indications: Stable Angina Pectoris. Medical History Medical History: Stable Angina Pectoris; Hypomagnesemia; Shortness of Breath; Chest Pain; Palpitation s; Diabetes Mellitus Type 2 w/ Neuropathy; Asthma; Anxiety; CAD; Obesity; Hyperlipidemia; Hypertensio n; NSTEMI (2019). Cardiac Medications: Aspirin; Albuterol Sulfate; Atorvastatin; HCTZ; Losartan; Metformin; Metoprolol Succinate; Nitroglycerin; Fluoxetine. Allergies: None. Cardiac Risk Factors: Hyperlipidemia; Hypertension; CVD; Diabetes Mellitus Type 2; Asthma; Former Smo ker; Obesity. Previous Cardiac Procedures: PCI x3 (2019). Pretest Chest Pain Characteristics: Mild chest pain; pt. rates it a 1-2/10. Exercise History: Indeterminate. Physical Disabilities: None. Lung Sounds: Clear bilaterally throughout, anterior and posterior. Heart Sounds: S1 and S2 auscultated. Stress Test Details Test: Exercise stress testing was performed using a [place] protocol. Nuclear Acquisition: Rest Tc-99m/Stress Tc-99m 1 day Rest Isotope: Tc-99m Sestamibi. Dose: 10.0 Date: 12/28/2023 Injection Time: 1100 Stress Isotope: Tc-99m Sestamibi. Dose: 30.0 Date: 12/28/2023 Injection Time: 1310 HR Resting HR Supine: 81 bpm Max Heart Rate (APMHR): 164.853140 bpm Resting HR Standin bpm Target HR (85% APMHR): 139.261529 bpm Max HR Achieved: 141 bpm % of APMHR: 85.98 Recovery HR: 94 bpm HR response to stress: Normal HR response to stress. BP Resting BP Supine: 120/84 mmHg Resting BP Standin/82 mmHg Max BP: 180/100 mmHg Recovery BP: 120/80 mmHg BP response to stress: Normal blood pressure response to stress. ECG Resting ECG: Sinus Rhythm. Ectopy: None. Stress ECG: Sinus Tachycardia. ST Change: No significant ST segment changes noted. Arrhythmia: Rare PVC. Recovery ECG: Sinus Rhythm. Recovery ST Change: No significant ST segment changes noted. Recovery Arrhythmia: Rare PVC. Clinical Reason for Termination: Target HR Achieved; Fatigue; Dyspnea. Stress Symptoms: General Fatigue; Dyspnea. Exercise duration: 04 min55 sec Highest Stage Reached: Stage 2: 2.5 mph at 12% grade. Exercise capacity: 6.92 METs Rate Pressure Product: [id number] Stress ECG Conclusion 1. Resting electrocardiogram showed poor R wave progression 2. Patient exercised on the [place] protocol and completed a workload of 6.92 METS 3. Normal heart rate and blood pressure response to exercise. The patient achieved 86% of predicted heart rate for age 4. There was no electrocardiographic evidence of myocardial ischemia. Patient had no symptoms of ang jesika 5. There were no dysrhythmias 6. See MPI report Stress Test Summary STAGE Time (mins) Speed (mph) Grade (%) HR BP SpO2 SYMPTOMS METS Supine 81 120/84 96 Pt. complaining of mild chest pain, stating is 1-2/10. Standing 96 114/82 96 1 3 1.7 10 126 160/82 4.5 2 6 2.5 12 141 Pt. complaining of moderate to severe SOB. 7 1 min recovery 132 160/80 98 Pt. complaining of moderate SOB. 3 min recovery 102 180/100 Pt. complaining of moderate SOB. 6 min recovery 91 160/94 Pt. complaining of mild SOB. 9 min recovery 90 140/100 Pt. complaining of minimal to no SOB. 12 min recovery 86 160/104 Pt. denies any SOB. Pt. denies any chest pain. 15 min recovery 94 120/80 96 Pt. was conversing pleasantly with nursing staff upon leaving the stress lab. Pt. left ambulatory in no apparent distress. MPI Conclusion Myocardial perfusion is normal. There is no ischemia or evidence of prior infarction Ejection fraction is 63% with normal wall motion Radiologist Interpretation Radiologist agrees with Fitting Room Associate's Interpretation. Radiologist Interpretation by: Maximo Lynn MD Interpretation Date/Time: 12/28/2023 17:40:10
== END ==
PROVIDERS: PCP Nurse Practitioner Family; Visit Provider Family Medicine
DX: I20.89 Other forms of angina pectoris (principal)
CPT/HCPCS: 78452; 93017

== ENCOUNTER 2024-01-01 20:56 | Outpatient (REF) | payer MEDICAID, SELFPAY ==
[2024-01-01 21:32] LABS: Anion Gap 11.4 mmol/L (3-11); BUN 13 mg/dL (7-18); CO2 29.6 mmol/L (21.0-32.0); Chloride 104 mmol/L (98-107); Estimated GFR 88.33 (mL/min/1.73m2); Glucose 160 mg/dL (74-106); Potassium 3.8 mmol/L (3.5-5.1); Sodium 145 mmol/L (136-145)
== END 2024-01-01 20:57 | disposition home or self-care (01) ==
LOC: LBN 20:56
PROVIDERS: PCP Nurse Practitioner Family; Visit Provider Nurse Practitioner Family
DX: E87.6 Hypokalemia (principal); I10 Essential (primary) hypertension; E11.9 Type 2 diabetes mellitus without complications; K21.9 Gastro-esophageal reflux disease without esophagitis; R06.02 Shortness of breath
CPT/HCPCS: 80048

== ENCOUNTER 2024-01-16 02:54 | Outpatient (CLI) | payer MEDICAID, SELFPAY ==
[2024-01-16 08:52] LABS: Anion Gap 11.1 mmol/L (3-11); BUN 24 mg/dL (7-18); CO2 27.9 mmol/L (21.0-32.0); CREATININE 1.2 mg/dL (0.70-1.30); Calcium 9.9 mg/dL (8.5-10.1); Chloride 99 mmol/L (98-107); Estimated GFR 70.98 (mL/min/1.73m2); Glucose 209 mg/dL (74-106); Potassium 3.6 mmol/L (3.5-5.1); Sodium 138 mmol/L (136-145)
== END 2024-01-16 02:55 | disposition home or self-care (01) ==
LOC: LBO 02:54
PROVIDERS: PCP Nurse Practitioner Family; Visit Provider Nurse Practitioner Family
DX: E87.6 Hypokalemia (principal)
CPT/HCPCS: 36415; 80048

== ENCOUNTER 2024-05-02 21:19 | Outpatient (REF) | payer MEDICAID, SELFPAY ==
[2024-05-02 20:57] LABS: HCT 48.3 % (40.0-50.0); HGB 15.9 g/dL (13.5-17.5); MCH 27.7 pg (27.0-33.0); MCHC 32.9 % (32.0-36.0); MCV 84 fL (80-95); MPV 10.6 fL (8.0-11.0); Platelet Count 234 10^3/uL (130-400); RBC 5.75 10^6/uL (4.36-5.78); RDW 13.5 % (11.8-14.1); RDW-SD 41.2 fL; WBC 7.76 10^3/uL (4.4-10.8)
[2024-05-02 21:08] LABS: ALT 45 U/L (16-63); AST 41 U/L (15-37); Alkaline Phosphatase 134 U/L (46-116); Anion Gap 5.9 mmol/L (3-11); BUN 21 mg/dL (7-18); Bilirubin, Total 0.73 mg/dL (0.2-1.0); CO2 29.1 mmol/L (21.0-32.0); CREATININE 1.4 mg/dL (0.70-1.30); Calcium 9.6 mg/dL (8.5-10.1); Chloride 99 mmol/L (98-107); Estimated GFR 58.99 (mL/min/1.73m2); Glucose 129 mg/dL (74-106); Magnesium 1.4 mg/dL (1.8-2.4); Sodium 134 mmol/L (136-145); Total Protein 7.2 g/dL (6.4-8.2)
== END 2024-05-02 21:20 | disposition home or self-care (01) ==
LOC: LBN 21:19
PROVIDERS: PCP Nurse Practitioner Family; Visit Provider Nurse Practitioner Family
DX: I25.119 Atherosclerotic heart disease of native coronary artery with unspecified angina pectoris (principal); E11.40 Type 2 diabetes mellitus with diabetic neuropathy, unspecified; E87.6 Hypokalemia; I10 Essential (primary) hypertension; M54.50 Low back pain, unspecified
CPT/HCPCS: 80053; 85027; 83735

== ENCOUNTER 2024-05-06 01:28 | Outpatient (CLI) | payer MEDICAID, SELFPAY ==
--- NOTE | 2024-05-06 10:05 | DI.RAD_ITS ---
Exam(s) XR LUMBAR SPINE COMPLETE EXAM: XR LUMBAR SPINE COMPLETE CLINICAL HISTORY: Low back pain,M54.50. TECHNIQUE: 2D digital imaging was performed of the lumbar spine. Five images were obtained. AP, la teral, right oblique, left oblique and L5-S1 spot views were obtained. COMPARISON: CR XR LUMBAR SPINE AP, LAT from 10/12/2021 FINDINGS: BONES: No fracture or destructive lesion. There are endplate osteophytes throughout the lumbar spine which are small. Degenerative changes of the facets are seen at L5-S1. DISKS: Disc space narrowing is seen at L4-5. ALIGNMENT: There is grade 1 anterolisthesis of L5 on S1. L5 spondylolysis is noted. SOFT TISSUE: Atherosclerotic calcification is present. IMPRESSION: 1. Mild degenerative changes in the lumbar spine. 2. Persistent L5 spondylolysis and grade 1 spondylolisthesis of L5 on S1. DATA REPOSITORY: RADIATION DOSE DELIVERED:
== END 2024-05-06 01:48 ==
LOC: DI 01:28
PROVIDERS: PCP Nurse Practitioner Family; Visit Provider Nurse Practitioner Family
DX: M43.17 Spondylolisthesis, lumbosacral region (principal)
CPT/HCPCS: 72110

== ENCOUNTER 2024-09-16 03:27 | Outpatient (CLI) | payer MEDICAID, SELFPAY ==
[2024-09-16 09:56] LABS: ALT 56 U/L (16-63); AST 35 U/L (15-37); Alkaline Phosphatase 126 U/L (46-116); Anion Gap 7.3 mmol/L (3-11); BUN 13 mg/dL (7-18); Bilirubin, Total 0.6 mg/dL (0.2-1.0); CO2 31.7 mmol/L (21.0-32.0); CREATININE 1.1 mg/dL (0.70-1.30); Calcium 9.7 mg/dL (8.5-10.1); Calculated LDL 9 mg/dL (<100); Chloride 103 mmol/L (98-107); Cholesterol 107 mg/dL (<200); Glucose 128 mg/dL (74-106); HDL Cholesterol 32 mg/dL (>or=40); Potassium 3.8 mmol/L (3.5-5.1); Sodium 142 mmol/L (136-145); Total Protein 7.6 g/dL (6.4-8.2); Triglyceride 330 mg/dL (<150)
== END 2024-09-16 03:28 | disposition home or self-care (01) ==
PROVIDERS: PCP Nurse Practitioner Family; Visit Provider Nurse Practitioner Family
DX: Z12.5 Encounter for screening for malignant neoplasm of prostate (principal); Z00.00 Encounter for general adult medical examination without abnormal findings; I10 Essential (primary) hypertension; I25.119 Atherosclerotic heart disease of native coronary artery with unspecified angina pectoris; E78.2 Mixed hyperlipidemia; E11.40 Type 2 diabetes mellitus with diabetic neuropathy, unspecified; K21.9 Gastro-esophageal reflux disease without esophagitis; J45.909 Unspecified asthma, uncomplicated; G47.30 Sleep apnea, unspecified
CPT/HCPCS: 36415; 80053; 80061; 84153

== ENCOUNTER 2024-10-22 08:38 | Outpatient (CLI) | payer MEDICAID, SELFPAY ==
--- NOTE | 2024-10-22 08:15 | DI.RAD_ITS ---
Exam(s) XR SHOULDER RT COMPLETE 2+V EXAM: XR SHOULDER RT COMPLETE 2+V CLINICAL HISTORY: RIGHT SHOULDER PAIN. TECHNIQUE: 2D digital imaging was performed of the right shoulder. Two images were obtained. Grash ey and axillary views were obtained. COMPARISON: There are no priors for comparison. FINDINGS: BONES: No acute fracture is present. No bony destructive lesion is seen. JOINTS: No dislocation present. There are mild degenerative changes seen at the acromioclavicular tuan nt. The glenohumeral joint is well maintained. SOFT TISSUE: Normal. IMPRESSION: There are mild degenerative changes seen at the acromioclavicular joint. DATA REPOSITORY: RADIATION DOSE DELIVERED:
== END 2024-10-22 08:39 | disposition home or self-care (01) ==
PROVIDERS: PCP Nurse Practitioner Family; Referring Provider Nurse Practitioner Family; Visit Provider Student in an Organized Health Care Education/Training Program
DX: M25.511 Pain in right shoulder (principal); M19.011 Primary osteoarthritis, right shoulder; M25.512 Pain in left shoulder; S46.211A Strain of muscle, fascia and tendon of other parts of biceps, right arm, initial encounter
CPT/HCPCS: 99203; 73030

== ENCOUNTER 2024-10-22 09:33 | Outpatient (CLI) | payer MEDICAID, SELFPAY ==
[2024-10-22 09:46] LABS: HCT 48.2 % (40.0-50.0); HGB 16.5 g/dL (13.5-17.5); MCH 27.5 pg (27.0-33.0); MCHC 34.2 % (32.0-36.0); MCV 80 fL (80-95); MPV 10.4 fL (8.0-11.0); Platelet Count 198 10^3/uL (130-400); RBC 6.01 10^6/uL (4.36-5.78); RDW 13.9 % (11.8-14.1); RDW-SD 39.8 fL; WBC 7.69 10^3/uL (4.4-10.8)
[2024-10-22 09:49] LABS: ESR 18 mm/hr (0-20)
[2024-10-22 10:06] LABS: C-Reactive Protein < 0.50 mg/dL (<or=0.5)
[2024-10-22 21:01] LABS: Rheumatoid Factor <8.6 IU/mL (<12.0)
[2024-10-23 09:48] LABS: Lyme Ab w Rflx to Lyme Confirm Negative (Negative)
[2024-10-23 10:47] LABS: Cyclic Citrullinated Peptide <2.5 U/mL (<5.0)
[2024-10-23 12:24] LABS: ANA Interpretation Negative (Negative)
[2024-10-25 01:35] LABS: Anaplasma phagocytophilum Negative (Negative); B. miyamotoi PCR Negative (Negative); Babesia divergens/MO-1 Negative (Negative); Babesia duncani Negative (Negative); Babesia microti Negative (Negative); Ehrlichia chaffeensis Negative (Negative); Ehrlichia ewingii/canis Negative (Negative); Ehrlichia muris eauclairensis Negative (Negative)
== END 2024-10-22 09:34 | disposition home or self-care (01) ==
LOC: LBO 09:34
PROVIDERS: PCP Nurse Practitioner Family; Visit Provider Student in an Organized Health Care Education/Training Program
DX: M25.511 Pain in right shoulder (principal); M25.512 Pain in left shoulder
CPT/HCPCS: 36415; 85027; 85652; 86200; 87798; 86038; 86140; 86431; 86618

== ENCOUNTER 2024-12-18 03:18 | Outpatient (CLI) | payer MEDICAID, SELFPAY ==
--- NOTE | 2024-12-18 07:30 | DI.CTLCSR_ITS ---
Exam(s) CT CHEST LUNG CANCER SCREEN EXAM: CT CHEST LUNG CANCER SCREEN CLINICAL HISTORY: Screening for lung cancer,CURRENT SMOKER, F17.200 TECHNIQUE: Imaging Protocol: Axial computed tomography images with coronal and sagittal reformatted images were created and reviewed. Low dose screening protocol. COMPARISON: CT CT CHEST LUNG CANCER SCREEN from 11/20/2023 CR XR PORTABLE CHEST AP from 12/25/2023 CR XR SHOULDER RT COMPLETE 2+V from 10/22/2024 FINDINGS: Tracheobronchial tree: No bronchiectasis or mucus plugging. Mediastinum and [place]: No dominant adenopathy or fluid collection. Pulmonary parenchyma: No consolidation or dominant measurable mass. No visible emphysematous changes. No significant interstitial changes. Lung Nodules: None. Pleura: No effusion. No pneumothorax. Heart: The heart is not dilated. No moderate coronary artery calcifications are seen. No pericardial effusion. Aorta: Thoracic aorta non-dilated. Upper abdomen: Enlarged liver with hepatic steatosis. Bones: Prominent osteophytes in the mid thoracic spine. Soft Tissues: Unremarkable. IMPRESSION: No suspicious pulmonary nodules. Lung RADS Cat 1 - Negative: No nodules and definitely benign nodules Lung-RADS 1.0 CATEGORIES: Category 0 - Prior chest CT exam(s) being located for comparison. Category 1 - Annual screening in 12 months. No nodules or definitely benign nodules. Category 2 - Annual screening in 12 months. Benign appearance. Nodules with low likelihood of becoming active cancer. Category 3 - 6-month follow-up. Probably benign. Short-term follow-up suggested. Nodules with low likelihood of becoming active cancer. Category 4A - 3-month follow-up and CT/PET if >8 mm in size. Suspicious finding. Findings which require additional testing. Category 4B - Findings which require additional testing and tissue sampling. Category 4X - Category 3 or 4 nodules with additional features or imaging findings that increases the suspicion of malignancy. Modifier S- Potentially clinically significant findings (non lung cancer) RADIATION DOSE DELIVERED: !Error Total DLP DATA REPOSITORY: All CT scans at this facility are submitted to the National Radiology Data Registry (NRDR) Dose Index Registry (DIR) with the [employer] ([employer]). RADIATION OPTIMIZATION: All CT scans at this facility use at least one of these dose optimization techniques: automated exposure control; mA and/or kV adjustment per patient size (includes targeted exams where dose is matched to clinical indication); or iterative reconstruction.
== END 2024-12-18 03:38 ==
PROVIDERS: PCP Nurse Practitioner Family; Visit Provider Nurse Practitioner Family
DX: F17.200 Nicotine dependence, unspecified, uncomplicated (principal); Z12.2 Encounter for screening for malignant neoplasm of respiratory organs
CPT/HCPCS: 71271

== ENCOUNTER 2025-04-11 10:10 | Outpatient (CLI) | payer MEDICARE, MEDICAID, SELFPAY ==
--- NOTE | 2025-04-11 10:30 | RT.EKG_ITS ---
APPROVED REPORT Exam: Resting ECG Reason for Exam: follow up EKG needed Patient Location: O HR:69 bpm ECG Measurements Heart Rate 69 AXIS CA 209 P 35 QRSd 91 QRS -15 QT 379 T 2 QTc 406 Conclusion Sinus rhythm...normal P axis, V-rate 50- 99 Borderline prolonged CA interval...CA >202, V-rate 50- 90 Inferior infarct, old...Q >35mS, II III aVF Baseline wander in lead(s) V1
== END 2025-04-11 10:11 | disposition home or self-care (01) ==
LOC: DI.CARD 10:37
PROVIDERS: PCP Nurse Practitioner Family; Visit Provider Internal Medicine Cardiovascular Disease
DX: R06.00 Dyspnea, unspecified (principal); R00.2 Palpitations
CPT/HCPCS: 93010

== ENCOUNTER → 2025-04-11 10:10 | Outpatient (BNVA) | payer MEDICARE, MEDICAID, SELFPAY | PROVIDERS: PCP Nurse Practitioner Family; Referring Provider Nurse Practitioner Family; Visit Provider Internal Medicine Cardiovascular Disease | DX: I25.119 Atherosclerotic heart disease of native coronary artery with unspecified angina pectoris (principal); R00.2 Palpitations; R06.00 Dyspnea, unspecified | CPT/HCPCS: 99213; 93005 ==

== ENCOUNTER 2025-05-01 00:53 | Outpatient (CLI) | payer MEDICARE, MEDICAID, SELFPAY ==
[2025-05-01 16:21] LABS: Hemoglobin A1C 9.0 % (<5.7)
== END 2025-05-01 00:54 | disposition home or self-care (01) ==
LOC: LOS 00:53
PROVIDERS: PCP Nurse Practitioner Family; Visit Provider Nurse Practitioner Family
DX: E11.40 Type 2 diabetes mellitus with diabetic neuropathy, unspecified (principal)
CPT/HCPCS: 36415; 83036